=== PATIENT | female | born 1935 | race Caucasian/White ===

== ENCOUNTER 2016-07-11 10:21 | Inpatient (IN) ==
[2016-07-11] MEDS ORDERED: DILTIAZEM 50 MG/10 ML VIAL IV STA ×2 (10:55→11:23)
[2016-07-11] MEDS ORDERED: DILTIAZEM 50 MG/10 ML VIAL IV ONE (10:57)
[2016-07-11] MEDS ORDERED: DILTIAZEM INJ 100 MG in SODIUM CHLORIDE 0.9% 100 ML IV SCH ×2 (11:00→12:30)
[2016-07-11 11:05] LABS: Basophils % 0.2 % (0.0-0.8); Eosinophils # 0.1 10*3/uL (0.0-0.87); Eosinophils % 0.5 % (0.00-10.9); Hematocrit 36.1 VOL% (35.7-47.0); Hemoglobin 12.1 GM/DL (12.0-16.0); Immature Granulocytes % 0.5 %; Immature Granulocytes Absolute 0.07 #; Lymphocytes # 2.6 10*3/uL (1.4-4.0); Lymphocytes % 19.7 % (21.3-54.2); Mean Corpuscular HGB Conc 33.5 GM/DL (32-36); Mean Corpuscular Hemoglobin 28 PG (27-34); Mean Corpuscular Volume 84.5 FL (87-102); Mean Platelet Volume 10.1 FL (9.6-12.0); Monocytes # 1.2 10*3/uL (0.11-0.8); Monocytes % 8.9 % (1.7-12.7); Neutrophils # 9.1 10*3/uL (1.4-7.4); Neutrophils % 70.2 % (38.7-73.9); Platelet Count 174 T/CUMM (130-400); Red Blood Count 4.27 MC/CUMM (3.8-5.5)
[2016-07-11 11:40] LABS: Albumin 3.1 G/DL (3.4-5.0); Bilirubin,Total 1.8 MG/DL (0.2-1.0); Calcium 7.8 MG/DL (8.5-10.1); Osmolality,Calculated 283.5 MOS/KG (273-304); Potassium 4.1 MMOL/L (3.5-5.1); Thyroid Stimulating Hormone 1.58 uIU/ml (0.358-3.74); Total Protein 6.2 G/DL (6.4-8.3)
[2016-07-11 11:41] LABS: Troponin I Only 0.217 NG/ML (0.00-0.045)
[2016-07-11] MEDS ORDERED: MORPHINE 2 MG/1 ML SYRINGE IV PRN (12:07)
[2016-07-11] MEDS ORDERED: ONDANSETRON 4 MG/2 ML VIAL IV PRN (12:07)
[2016-07-11] MEDS ORDERED: ACETAMINOPHEN 325 MG TABLET PO PRN (12:07)
--- NOTE | 2016-07-11 12:07 | Emergency Department Note ---
Yasmany Ca Brooke, am scribing for, and in the presence of, Dariel Otero MD 10 :52. Branden Ca Doug C, MD, personally performed the services described in this documentation, ascribed by Traci Jade in my presence, and it is both accurate and complete . Arrival - Arrival Chief Complaint: Weakness Stated Complaint: in afib/brought from clinic ED Nursing Triage Note: PT COMPLAINS OF HER FEET HURTING AND SWOLLEN, STATES SHE WAS REAL FATIGUED YESTERDAY AND HR WAS ELEVATED Mode of Arrival: Wheelchair Limitations: No Limitations Source: Patient, RN Notes Reviewed Time Seen by Provider: 07/11/16 10:50 - History of Present Illness HPI Narrative: Patient's 81-year-old white female presents emergency room complaining of increasing weakness and shortness of breath. Patient states she is noted swelling of her lower extremities but she does not perceive her heart racing. Her states when I checked her blood pressure at home for the last several days her pulse rate has measured high. Patient denies any pain associated with this. Patient denies any neck, shoulder or arm discomfort and she is not having any nausea or vomiting. Patient does have a past medical history of chronic atrial fibrillation and is on low-dose diltiazem and carvedilol. Allergies/Adverse Reactions: Allergies Allergy/AdvReac Type Severity Reaction Status Date / Time diphenhydramine AdvReac RASH Verified 07/11/16 10:30 [From Benadryl] Penicillins AdvReac RASH Verified 07/11/16 10:30 Home Medications: Home Medications Medication Instructions Recorded Confirmed Type Aspirin EC Tab 81 mg PO QPM 07/11/16 07/11/16 History Carvedilol [Carvedilol] 12.5 mg PO QPM 07/11/16 07/11/16 History Multivitamin [Multivitamins] 1 each PO QAM 07/11/16 07/11/16 History Omeprazole [Omeprazole] 20 mg PO QAM 07/11/16 07/11/16 History Simvastatin [Simvastatin] 5 mg PO MOWEFR 07/11/16 07/11/16 History Warfarin [Coumadin] 0.625 mg PO SUMOWEFR 07/11/16 07/11/16 History Warfarin [Coumadin] 1.25 mg PO TUTHSA 07/11/16 07/11/16 History dilTIAZem HCl [Cartia XT] 120 mg PO QAM 07/11/16 07/11/16 History Review of System - Review of System 12 point system: reviewed and no additional remarkable complaints except as stated - Review of System Constitutional: Absent: fever Respiratory: Absent: respiratory distress Cardiovascular: Present: edema (bilateral lower extremities), other (elevated heart rate) Skin: Absent: rash Medical,Surgical,& Family Hx - Medical History Cardio: History of: Cardiac Dysrhythmia (a fib), Hypertension (not on meds) - Surgical History Surgical History: noncontributory - Family History Family History: noncontributory - Social History Smoking Status: Never smoker Exam Vital Signs: Vital Signs Temperature 97.6 F 07/11/16 10:30 Pulse Rate 160 H 07/11/16 10:30 Respiratory Rate 22 07/11/16 10:30 Blood Pressure 111/91 07/11/16 10:30 O2 Sat by Pulse Oximetry 99 07/11/16 10:30 - General General appearance: alert, in no apparent distress - Head Head exam: Present: atraumatic, normocephalic - Eye Eye exam: Present: normal appearance, PERRL, EOMI - ENT ENT exam: Present: normal exam - Neck Neck exam: Present: normal inspection - Chest Chest inspection: Present: normal inspection, symmetric chest wall rise - Respiratory Respiratory exam: Present: normal lung sounds bilaterally - Cardiovascular Cardiovascular exam: Present: tachycardia, irregular rhythm, normal heart sounds. Absent: normal rhythm - Abdominal Exam Abdominal exam: Present: soft. Absent: distention, tenderness - Extremities Exam Extremities exam: Present: normal inspection - Back Exam Back exam: Present: normal inspection - Neurological Exam Neurological exam: Present: alert, oriented X3, CN II-XII intact. Absent: motor sensory deficit - Psychiatric Psychiatric exam: Present: normal affect, normal mood - Skin Skin exam: Present: warm, dry, intact, normal color Course Course Narrative: Patient's clinical presentation, laboratory and radiograph findings were discussed with Dr. Alvaro Gilliam. He will admit the patient for his services and cardiology will be consulted. Dr. Barry was notified. Results - Labs CBC & BMP: 07/11/16 10:53 07/11/16 10:53 Lab Results: I have reviewed the patients labs Labs: Laboratory Tests 07/11/16 10:53 WBC 13.0 H MCV 84.5 L Lymph % (Auto) 19.7 L Neut # (Auto) 9.1 H [place] # (Auto) 1.2 H - EKG EKG results: interpreted by BEATRIZD EKG shows: atrial fibrillation (With rapid ventricular response) Disposition Clinical Impression: Atrial fibrillation with rapid ventricular response Case discussed with: patient, patient's family Disposition: Still a Patient Condition: Stable Time of Disposition: 12:07
--- NOTE | 2016-07-11 12:35 | XRay Report ---
History: Acute dyspnea Date: 07/11/2016 at 12:19 PM Study: Chest x-ray AP portable Comparison exam: October 01, 2012 chest x-ray There is cardiomegaly. There is no mediastinal mass. There is [id number]-[id number] aortic arch calcification. The pulmonary vasculature is borderline prominent. There is some mild hazy density in the lung bases bilaterally. There is no gross pleural effusion. The osseous structures are unchanged, with mild thoracic spondylosis. Impression: Mild hazy bibasilar parenchymal disease. Mild pulmonary edema related to CHF/volume overload is favored over pneumonia PROCEDURE INTERPRETED AT [facility] DEPARTMENT OF RADIOLOGY Final Report Signed by: Dr. Karina Vizcaino
--- NOTE | 2016-07-11 12:48 | EKG Report ---
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
[2016-07-11 13:45] LABS: PT Patient Result 33.9 SECS
--- NOTE | 2016-07-11 14:38 | Cardiology Consult Note ---
Assessment and Plan - Time spent with patient Time spent with patient: Greater than 30 minutes (1) Atrial fibrillation with rapid ventricular response Status: Acute Assessment and plan: See plan of care listed below. Current Visit: Yes (2) Renal insufficiency Status: Chronic Assessment and plan: See plan of care listed below. Current Visit: Yes (3) Chronic anticoagulation Status: Chronic Assessment and plan: See plan of care listed below. Current Visit: Yes (4) Dyslipidemia Status: Chronic Assessment and plan: See plan of care listed below. Current Visit: Yes (5) Elevated troponin Status: Acute Assessment and plan: See plan of care listed below. Current Visit: Yes (6) Hypomagnesemia Status: Acute Assessment and plan: See plan of care listed below. Current Visit: Yes (7) Elevated liver enzymes Status: Acute Assessment and plan: See plan of care listed below. Current Visit: Yes (8) Pulmonary edema Status: Acute Assessment and plan: See plan of care listed below. Current Visit: Yes History of Present Illness - Data of Consult Patient: known to practice within the last 3 years Consult date: 07/11/16 Requesting Physician: Dariel Otero Primary care physician: Dariel Otero - Consult Narrative Reason for consult: weakness History of present illness: Desizing Machine Operator: Dr. Kemp PCP: Dr. Dariel Otero Ms. Roth is a 81 year old female is routinely followed by Dr mcgraw. Patient presented to [facility] this morning with complaints of weakness. Patient is a poor historian. She is a questionable history of coronary artery disease. She reports that she has never undergone heart catheterization and does not have any coronary stents. However, Dr. Kemp note she has diagnosed with coronary artery disease. No heart catheterization reports were found in electronic medical record. She has cardiac risk factors significant for hypertension, dyslipidemia, former smoker ( quit in 1956), advanced age, sedentary lifestyle and family history of heart disease. She has a past medical history of chronic atrial fibrillation chronically anticoagulated with Coumadin. She was last seen in the cardiology clinic January 2016. At that time, she was offered to change her anticoagulation to a [place]. She declined. Patient presented to the emergency department earlier today with complaints of weakness, bilateral lower extremity edema and fatigue. Upon arrival to the emergency department she was noted to be in atrial fibrillation with rapid ventricular response, heart rate 150s-160s. Patient does have a history of chronic atrial fibrillation and is chronically anticoagulated with Coumadin. INR 3.0. Patient denies shortness of breath and chest pain, heaviness and tightness. Denies orthopnea, PND and heart racing/palpitations. In the emergency department she was started on diltiazem drip. This continues to infuse at 7 mg/h. Patient remains in atrial fibrillation. Heart rates are better controlled ranging from 100-110. Patient was admitted under Dr. Otero service and housed on the telemetry unit. Cardiology has been consulted to assist with heart atrial fibrillation. Troponin is mildly elevated at 0.2. I suspect that this is most likely secondary to patient's rapid ventricular response and renal insufficiency, creatinine 1.6. Patient has been without anginal symptoms. Chest x-ray reveals mild pulmonary edema. Patient denies shortness of breath. Echocardiogram has been ordered. Will check BNP in the morning. Magnesium is low at 1.4. Magnesium replacement protocol ordered. Vital signs are stable. Will discuss this further with Dr. Barry and await his recommendations. Assessment/plan: 1. ATRIAL FIBRILLATION WITH RAPID VENTRICULAR RESPONSE - Patient has history of chronic atrial fibrillation. Chronically anticoagulated with Coumadin. Continue Coumadin this hospitalization. Daily INR. Currently receiving Cardizem infusion at 7.5 mg an hour. I will increase this to 10 mg/h. Once she is rate controlled, we will then transition her back to p.o. Cardizem. Continue beta-blockade. Patient will most likely not be a good candidate for amiodarone as she has elevated liver enzymes. 2. ELEVATED TROPONIN - Troponin is mildly elevated at 0.2. I suspect this is most likely secondary to patient's rapid ventricular response and renal insufficiency as patient's creatinine was 1.6. Patient is without anginal symptoms. We will continue to monitor this trend to ensure that this is in fact trending down. 3. HYPERTENSION - Blood pressure is well controlled. Will continue current plan of care and further adjust as needed throughout her hospital stay. 4. HYPERLIPIDEMIA - Continue current plan of care with lipid lowering agent. Lipid panel ordered. 5. CHRONIC ANTICOAGULATION - Patient is chronically anticoagulated with Coumadin as she has chronic A. fib. INR on admission is 3.0. Will recheck this in the morning and adjust Coumadin as needed throughout her hospital stay. 6. RENAL INSUFFICIENCY - Will monitor this closely with daily BMP. 7. HYPOMAGNESEMIA- Magnesium 1.4. Magnesium replacement protocol ordered. Daily magnesium. 8. BILATERAL LOWER EXTREMITY EDEMA - Will check BNP in the morning. Echocardiogram has been ordered. Will review results and make further recommendations at that time. 9 ELEVATED LIVER ENZYMES - Patient's liver enzymes as well as total bilirubin is elevated. Will monitor this closely. Defer management further workup of this to attending. CC: Dariel Otero MD - Home Medications and Allergies Home Medications: Home Medications Medication Instructions Recorded Confirmed Type Aspirin EC Tab 81 mg PO QPM 07/11/16 07/11/16 History Carvedilol [Carvedilol] 12.5 mg PO QPM 07/11/16 07/11/16 History Multivitamin [Multivitamins] 1 each PO QAM 07/11/16 07/11/16 History Omeprazole [Omeprazole] 20 mg PO QAM 07/11/16 07/11/16 History Simvastatin [Simvastatin] 5 mg PO MOWEFR 07/11/16 07/11/16 History Warfarin [Coumadin] 0.625 mg PO SUMOWEFR 07/11/16 07/11/16 History Warfarin [Coumadin] 1.25 mg PO TUTHSA 07/11/16 07/11/16 History dilTIAZem HCl [Cartia XT] 120 mg PO QAM 07/11/16 07/11/16 History Allergies/Adverse Reactions: Allergies Allergy/AdvReac Type Severity Reaction Status Date / Time diphenhydramine AdvReac RASH Verified 07/11/16 10:30 [From Benadryl] Penicillins AdvReac RASH Verified 07/11/16 10:30 - Constitutional Constitutional: Present: fatigue, lethargy, malaise, weakness. Absent: chills, fever(s) - EENT Nose, mouth and throat: Present: other (Hard of hearing) - Cardiovascular Cardiovascular: Present: edema. Absent: chest pain at rest, chest pain with activity, dyspnea, dyspnea on exertion, radiating jaw, neck or arm pain, orthopnea, palpitations, PND - Respiratory Respiratory: Absent: cough, dyspnea, hemoptysis, dyspnea on exertion, wheezing - Gastrointestinal Gastrointestinal: Absent: abdominal pain, change in bowel habits, coffee ground emesis, constipation, cramping, diarrhea, hematemesis, hematochezia, loose stools, melena, nausea, vomiting - Neurological Neurological: Absent: abnormal gait, abnormal speech, behavioral changes, dizziness, syncope Medical,Surgical,& Family Hx - Medical History Cardio: History of: Cardiac Dysrhythmia (a fib), Hypertension (not on meds) Endocrine: History of: Dyslipidemia - Family History Family History: Reports;: Family Heart Disease - Social History Smoking Status: Former smoker Frequency of Alcohol Use: None Type of Drug Use: None Physical Examination Vital Signs Temp Pulse Resp BP Pulse Ox 97.6 F 160 H 22 111/91 99 07/11/16 10:30 07/11/16 10:30 07/11/16 10:30 07/11/16 10:30 07/11/16 10:30 Other: General: Appears well with no apparent distress. Pleasant and cooperative. Appears comfortable. HEENT: PERRL, normocephalic, atraumatic. Mucous membranes moist. No jaundice noted. Conjunctiva moist and clear, sclerae anicteric Neck: No JVD/HJR, no thyromegaly or lymphadenopathy noted. No carotid bruit appreciated Cardiac: Irregular rhythm, tachycardia. Systolic murmur. Lungs: Clear to auscultation without accessory muscle use to assist the respiratory pattern. Not requiring oxygen. Abdomen: Soft, bowel sounds normoactive. Nontender and nondistended. No abdominal bruit or thrill noted. No masses noted. Extremities: No clubbing, cyanosis noted. 1+ bilateral lower extremity edema. Upper extremity pulses 2+. Lower extremity pulses 2+. Capillary refill less than 3 seconds. Skin: No unusual lesions or rashes. No skin breakdown appreciated. Neuro: Awake, alert and oriented 3. Moves all extremities well without hemiparesis or paralysis. No essential tremor is appreciated. Result/EKG - Labs CBC & BMP: 07/11/16 10:53 07/11/16 10:53 Lab Results: I have reviewed the past 24 hour labs Labs: Laboratory Results - last 24 hr 07/11/16 13:23 INR 3.0 PT Patient/Control Mix 33.9 - EKG EKG results: interpreted by me EKG shows: atrial fibrillation Quality Measures - Stroke Symptom Onset Unknown: No
[2016-07-11] MEDS: MAGNESIUM SULF RIDER 2 GM in PREMIX 1 EACH IV PRN ×2 (15:35→17:03)
[2016-07-11] MEDS: SIMVASTATIN 10 MG TABLET PO SCH (15:41)
[2016-07-11 16:36] LABS: Troponin I Only 0.159 NG/ML (0.00-0.045)
[2016-07-11] MEDS: WARFARIN 2.5 MG TABLET PO SCH (18:05)
[2016-07-11] MEDS: ASPIRIN EC 81 MG TABLET PO SCH (18:05)
[2016-07-11] MEDS ORDERED: CARVEDILOL 12.5 MG TABLET PO SCH ×2 (19:00→21:00)
[2016-07-11] MEDS ORDERED: CARVEDILOL 25 MG TABLET PO SCH (19:00)
--- NOTE | 2016-07-11 20:09 | Family Practice History&Phys ---
Assessment and Plan (1) Atrial fibrillation with rapid ventricular response Status: Acute Assessment and plan: 07/11/2016 patient is on Cardizem at this time. We will continue her current medicines as ordered per ER Current Visit: Yes (2) Elevated troponin Status: Acute Assessment and plan: 07/11/2016: This is elevated probably due to the fast heart rate. Patient does not have any crystal chest pain at this time Current Visit: Yes (3) Dyslipidemia Status: Chronic Assessment and plan: 07/11/2016: Continue current medications for this. Current Visit: Yes History of Present Illness Chief complaint: Weakness, irregular heartbeat History of present illness: Ms. Roth is a 81 year old female , Primary patient of Dr. Otero came into the emergency room with some weakness. She was noted on examination to be in atrial fibrillation with a rapid ventricular response. She does have cardiac history treated medically. She does have a history of hypertension, dyslipidemia and there is a family history of heart disease. She has had a chronic history of atrial fibrillation and has been on Coumadin but at this time it was noted to have a fast ventricular response. Her heart rate was in the range of 150-155. Patient was started on diltiazem drip in the emergency room and is continuing at this time. We will monitor closely and check a thyroid if not already done. Cardiology is already seen patient and appreciate their assistance in this case Home Medications Medication Instructions Recorded Confirmed Type Aspirin EC Tab 81 mg PO QPM 07/11/16 07/11/16 History Carvedilol [Carvedilol] 12.5 mg PO QPM 07/11/16 07/11/16 History Multivitamin [Multivitamins] 1 each PO QA 07/11/16 07/11/16 History Omeprazole [Omeprazole] 20 mg PO QAM 07/11/16 07/11/16 History Simvastatin [Simvastatin] 5 mg PO MOWEFR 07/11/16 07/11/16 History Warfarin [Coumadin] 0.625 mg PO SUMOWEFR 07/11/16 07/11/16 History Warfarin [Coumadin] 1.25 mg PO TUTHSA 07/11/16 07/11/16 History dilTIAZem HCl [Cartia XT] 120 mg PO QAM 07/11/16 07/11/16 History Allergies Allergy/AdvReac Type Severity Reaction Status Date / Time diphenhydramine AdvReac RASH Verified 07/11/16 10:30 [From Benadryl] Penicillins AdvReac RASH Verified 07/11/16 10:30 12 point system: reviewed and no additional remarkable complaints except as stated (Except that mentioned on H&P and physical exam) - EENT Ears: Absent: ear pain Nose, mouth and throat: Absent: dysphagia - Respiratory Respiratory: Absent: hemoptysis - Gastrointestinal Gastrointestinal: Absent: hematemesis - Genitourinary Genitourinary: Absent: difficulty urinating Medical,Surgical,& Family Hx - Medical History Cardio: History of: Cardiac Dysrhythmia (a fib), Hypertension (not on meds) Endocrine: History of: Dyslipidemia - Family History Family History: Reports;: Family Heart Disease - Social History Smoking Status: Former smoker Frequency of Alcohol Use: None Type of Drug Use: None Exam - Constitutional Vitals: Period Temp Pulse Resp BP Sys/Cook Pulse Ox Last 24 Hr 97.1 F 121-130 20 100/58 95 Exam: Generally well-developed. No acute distress appears her approximate age of 81 years. HEENT neck is supple trachea midline Cardiovascular rate is irregular and atrial fibrillation with rapid ventricular response intermittently. There is 1/6 systolic ejection murmur Lungs few basilar rales but no respiratory distress Abdomen soft nondistended Extremities no clubbing cyanosis Results - Labs CBC & BMP: 07/11/16 10:53 07/11/16 10:53 Quality Measures - Stroke Symptom Onset Unknown: No
[2016-07-11] MEDS: METOPROLOL TARTRATE 25 MG TABLET PO SCH (22:40)
[2016-07-11] MEDS: DOCUSATE SODIUM 100 MG CAPSULE PO SCH (22:40)
[2016-07-11 23:59] LABS: Troponin I Only 0.108 NG/ML (0.00-0.045)
[2016-07-12 04:54] LABS: Basophils % 0.1 % (0.0-0.8); Eosinophils # 0.2 10*3/uL (0.0-0.87); Eosinophils % 2.3 % (0.00-10.9); Hematocrit 33.8 VOL% (35.7-47.0); Hemoglobin 11.1 GM/DL (12.0-16.0); Immature Granulocytes % 0.3 %; Immature Granulocytes Absolute 0.03 #; Lymphocytes # 2.4 10*3/uL (1.4-4.0); Lymphocytes % 23.6 % (21.3-54.2); Mean Corpuscular HGB Conc 32.8 GM/DL (32-36); Mean Corpuscular Hemoglobin 28 PG (27-34); Mean Corpuscular Volume 84.7 FL (87-102); Mean Platelet Volume 10.2 FL (9.6-12.0); Monocytes # 0.8 10*3/uL (0.11-0.8); Monocytes % 8.2 % (1.7-12.7); Neutrophils # 6.6 10*3/uL (1.4-7.4); Neutrophils % 65.5 % (38.7-73.9); Platelet Count 195 T/CUMM (130-400); Red Blood Count 3.99 MC/CUMM (3.8-5.5); Red Cell Distribution Width 14.8 % (9.3-17.3); White Blood Count 10.1 T/CUMM (4-12)
[2016-07-12 05:12] LABS: INR 3.2
[2016-07-12 05:40] LABS: Albumin 2.7 G/DL (3.4-5.0); Bilirubin,Direct 0.5 MG/DL (0.0-0.20); Bilirubin,Indirect 1.5 MG/DL (0.0-1.0); Calcium 7.9 MG/DL (8.5-10.1); Magnesium 2.5 MG/DL (1.8-2.4); Osmolality,Calculated 281.4 MOS/KG (273-304); Potassium 3.8 MMOL/L (3.5-5.1); Total Protein 5.4 G/DL (6.4-8.3)
[2016-07-12] MEDS ORDERED: FUROSEMIDE 20 MG TABLET PO ONE (07:56)
[2016-07-12] MEDS ORDERED: POTASSIUM CHLORIDE 20 MEQ TABLET PO ONE (07:57)
[2016-07-12] MEDS: MULTIVITAMIN (CENTRUM) TABLET PO SCH (08:03)
[2016-07-12] MEDS: DOCUSATE SODIUM 100 MG CAPSULE PO SCH ×2 (08:03→20:46)
[2016-07-12] MEDS: PANTOPRAZOLE 40 MG TABLET PO SCH (08:03)
[2016-07-12] MEDS: DILTIAZEM CD 120 MG CAPSULE PO SCH (08:03)
[2016-07-12] MEDS: METOPROLOL TARTRATE 25 MG TABLET PO SCH (08:04)
--- NOTE | 2016-07-12 09:01 | EKG Report ---
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
[2016-07-12 09:07] LABS: Troponin I Only 0.084 NG/ML (0.00-0.045)
--- NOTE | 2016-07-12 09:14 | Family Practice Progress Note ---
Family Practice - PN: Subj Interval history: Patient seen this morning. Her heart rate is still fast between 110 and 130. Remains in atrial fibrillation with intermittent RVR. She is satting approximately 94%. Continues on a Cardizem drip and is tolerating p.o. Cardizem as well. Her H&H is stable and her chemistries reveal creatinine 1.3 which is down from 1.6. Her magnesium has come up to within normal levels and her cardiac ossicles are stable as well. She does have dependent 2+ edema and I am going to give her 1 dose of Lasix with potassium supplementation along with this. Exam (Progress Note) - Constitutional Vitals: Period Temp Pulse Resp BP Sys/Cook Pulse Ox Last 24 Hr 97 F-97.7 F 74-130 16-20 92-126/56-78 87-95 Exam: Generally well-developed. No acute distress appears her approximate age of 81 years. HEENT neck is supple trachea midline Cardiovascular rate is irregular and atrial fibrillation with rapid ventricular response intermittently. There is 1/6 systolic ejection murmur Lungs few basilar rales but no respiratory distress Abdomen soft nondistended Extremities no clubbing cyanosis Results - Labs CBC & BMP: 07/12/16 04:43 07/12/16 04:42 Assessment and Plan (1) Atrial fibrillation with rapid ventricular response Status: Acute Assessment and plan: 07/11/2016 patient is on Cardizem at this time. We will continue her current medicines as ordered per ER 07/12/2016 we are continuing on the cardiogram IV as well as p.o. now and cardiology is involved Current Visit: Yes (2) Elevated troponin Status: Acute Assessment and plan: 07/11/2016: This is elevated probably due to the fast heart rate. Patient does not have any crystal chest pain at this time Current Visit: Yes (3) Dyslipidemia Status: Chronic Assessment and plan: 07/11/2016: Continue current medications for this. Current Visit: Yes Quality Measures - Stroke Symptom Onset Unknown: No
--- NOTE | 2016-07-12 10:33 | ECHO Report ---
Zayra Roth Exam Date: 07/12/2016 08:36 Referring Physician: Technologist: Age: 81 Ht (in): Wt (lb): Gender: F Exam Location: [facility] Echo Indications: BP: / HR: Rhythm: Sinus Technical Quality: Fair IMPRESSIONS Left ventricular chamber sizes are at the upper limit of normal. No evidence of concentric LVH is noted. There is diffuse severe left ventricular hypokinesis with ejection fraction in the 15% range. There is paradoxic septal motion consistent with right ventricular volume/pressure overload. Right ventricle appears to be normal size. Right ventricular systolic function appears to be preserved. There is paradoxical septal motion as outlined above consistent with RV volume/pressure overload Normal right atrial size Marked left atrial enlargement Mitral annular calcification with otherwise normal mitral valve motion noted given the patient's atrial fibrillation. 1+ mitral insufficiency is noted. Aortic valve sclerosis without evidence of stenosis Tricuspid morphology is normal with normal motion. There is 4+ tricuspid insufficiency at velocities suggesting systolic PA pressures of 40 mmHg. Pulmonic valve is not well visualized No pericardial effusion. There is no calcification of the pericardium or pericardial thickening noted. Aortic root appears to be normal dimension without evidence of dissection or any MEASUREMENTS (Male / Female) Normal Values 2D ECHO LV Diastolic Diameter PLAX 5.1 cm 4.2 - 5.9 / 3.9 - 5.3 cm LV Systolic Diameter PLAX 4.8 cm LV Fractional Shortening PLAX 5.9 % IVS Diastolic Thickness 0.9 cm 0.6 - 1.0 / 0.6 - 0.9 cm LVPW Diastolic Thickness 1.0 cm 0.6 - 1.0 / 0.6 - 0.9 cm RV Internal Dim ED PLAX 2.9 cm Aortic Root Diameter 2.7 cm LA Systolic Diameter LX 4.6 cm 3.0 - 4.0 / 2.7 - 3.8 cm DOPPLER TR Peak Velocity 334.0 cm/s TR Peak Gradient 44.6 mmHg FINDINGS Left Ventricle Left ventricular chamber sizes are at the upper limit of normal. No evidence of concentric LVH is noted. There is diffuse severe left ventricular hypokinesis with ejection fraction in the 15% range. There is paradoxic septal motion consistent with right ventricular volume/pressure overload. Right Ventricle Right ventricle appears to be normal size. Right ventricular systolic function appears to be preserved. There is paradoxical septal motion as outlined above consistent with RV volume/pressure overload Right Atrium Normal right atrial size Left Atrium Marked left atrial enlargement Mitral Valve Mitral annular calcification with otherwise normal mitral valve motion noted given the patient's atrial fibrillation. 1+ mitral insufficiency is noted. Aortic Valve Aortic valve sclerosis without evidence of stenosis Tricuspid Valve Tricuspid morphology is normal with normal motion. There is 4+ tricuspid insufficiency at velocities suggesting systolic PA pressures of 40 mmHg. Pulmonic Valve Pulmonic valve is not well visualized Pericardium No pericardial effusion. There is no calcification of the pericardium or pericardial thickening noted. Aorta Aortic root appears to be normal dimension without evidence of dissection or any Fransisco Barry MD (Electronically Signed) Final Date: 12 Jul 2016 10:32
--- NOTE | 2016-07-12 11:12 | Cardiology Progress Note ---
Assessment and Plan (1) Cardiomyopathy Status: Acute Assessment and plan: This patient has a new finding of an ejection fraction of 15%. She does have evidence of right ventricular pressure and volume overload. She will be volume dependent will have to be cautious about over diuresing. I think the best approach is going to be rate control and offloading as she tolerates. She is in atrial fibrillation with rapid ventricular response on Cardizem which is not optimal and we will try to transition her medicine once we have her rate better controlled. Current Visit: Yes (2) Atrial fibrillation with rapid ventricular response Status: Acute Current Visit: Yes Cardiology - PN: Subj Interval history: This patient has a cardiomyopathy with an ejection fraction of 15%. She is in atrial fibrillation with rapid ventricular response. Cardizem was not an optimal medicine given the situation and we will continue it until we have her rate under little better control while we adjust her meds. I am going to increase her beta-david and and angiotensin receptor david and follow her renal function closely. Exam (Progress Note) - Constitutional Vitals: Period Temp Pulse Resp BP Sys/Cook Pulse Ox Last 24 Hr 97 F-97.7 F 74-130 16-20 92-126/56-78 87-95 Exam: General:no acute distress. alert and oriented, mood and affect are normal HEENT: no new lesions, sclerae are clear, mouth and pharynx benign Neck: supple, trachea midline, no JVD noted Lungs: no rales ronchi or wheeze is noted. pt comfortable without accesory muscle use to assist with breathing CV: Irregularly irregular rate and rhythm no murmur rub or gallop is noted. Abd: soft and nontender, BSNA, no masses. Ext: no cyanosis, clubbing or edema Neuro: grossly intact without focal neurologic deficit. Result/EKG - Labs CBC & BMP: 07/12/16 04:43 07/12/16 04:42 Labs: Laboratory Results - last 24 hr 07/11/16 07/11/16 07/11/16 13:23 15:47 23:09 WBC RBC Hgb Hct MCV MCH MCHC RDW Plt Count MPV Neut % (Auto) Lymph % (Auto) [place] % (Auto) Eos % (Auto) Baso % (Auto) Neut # (Auto) Lymph # (Auto) [place] # (Auto) Eos # (Auto) Baso # (Auto) Immature Gran % Nucleated RBC % Immature Gran # Nucleated RBCs # INR 3.0 PT Patient/Control Mix 33.9 Sodium Potassium Chloride Carbon Dioxide Anion Gap BUN Creatinine GFR Calculation BUN/Creatinine Ratio Glucose Calculated Osmolality Calcium Magnesium Total Bilirubin Direct Bilirubin Indirect Bilirubin AST ALT Alkaline Phosphatase Total Creatine Kinase 61 60 CK-MB (CK-2) 1.7 1.5 Troponin I 0.159 H D 0.108 H D B-Natriuretic Peptide Total Protein Albumin 07/12/16 07/12/16 07/12/16 04:42 04:42 04:42 WBC RBC Hgb Hct MCV MCH MCHC RDW Plt Count MPV Neut % (Auto) Lymph % (Auto) [place] % (Auto) Eos % (Auto) Baso % (Auto) Neut # (Auto) Lymph # (Auto) [place] # (Auto) Eos # (Auto) Baso # (Auto) Immature Gran % Nucleated RBC % Immature Gran # Nucleated RBCs # INR 3.2 PT Patient/Control Mix 36.0 Sodium 140 Potassium 3.8 Chloride 106 Carbon Dioxide 24 Anion Gap 13.8 BUN 22 H Creatinine 1.30 H GFR Calculation 38 BUN/Creatinine Ratio 16.00 Glucose 106 Calculated Osmolality 281.4 Calcium 7.9 L Magnesium 2.5 H Total Bilirubin Direct Bilirubin Indirect Bilirubin AST ALT Alkaline Phosphatase Total Creatine Kinase CK-MB (CK-2) Troponin I B-Natriuretic Peptide 670 H Total Protein Albumin 07/12/16 07/12/16 07/12/16 04:42 04:43 07:42 WBC 10.1 RBC 3.99 Hgb 11.1 L Hct 33.8 L MCV 84.7 L MCH 28 MCHC 32.8 RDW 14.8 Plt Count 195 MPV 10.2 Neut % (Auto) 65.5 Lymph % (Auto) 23.6 Cameron % (Auto) 8.2 Eos % (Auto) 2.3 Baso % (Auto) 0.1 Neut # (Auto) 6.6 Lymph # (Auto) 2.4 [place] # (Auto) 0.8 Eos # (Auto) 0.2 Baso # (Auto) 0.0 Immature Gran % 0.3 Nucleated RBC % 0.0 Immature Gran # 0.03 Nucleated RBCs # 0.00 INR PT Patient/Control Mix Sodium Potassium Chloride Carbon Dioxide Anion Gap BUN Creatinine GFR Calculation BUN/Creatinine Ratio Glucose Calculated Osmolality Calcium Magnesium Total Bilirubin 2.00 H Direct Bilirubin 0.50 H Indirect Bilirubin 1.5 H AST 141 H ALT 152 H Alkaline Phosphatase 72 Total Creatine Kinase 57 CK-MB (CK-2) 2.5 Troponin I 0.084 H D B-Natriuretic Peptide Total Protein 5.4 L Albumin 2.7 L Quality Measures - Stroke Symptom Onset Unknown: No
[2016-07-12] MEDS ORDERED: WARFARIN 2.5 MG TABLET PO SCH (18:00)
[2016-07-12] MEDS: ASPIRIN EC 81 MG TABLET PO SCH (18:10)
[2016-07-13 05:12] LABS: Basophils % 0.3 % (0.0-0.8); Eosinophils # 0.4 10*3/uL (0.0-0.87); Eosinophils % 3.8 % (0.00-10.9); Hematocrit 35.2 VOL% (35.7-47.0); Hemoglobin 11.7 GM/DL (12.0-16.0); Immature Granulocytes % 0.4 %; Immature Granulocytes Absolute 0.04 #; Lymphocytes # 2.6 10*3/uL (1.4-4.0); Lymphocytes % 26.1 % (21.3-54.2); Mean Corpuscular HGB Conc 33.2 GM/DL (32-36); Mean Corpuscular Hemoglobin 28 PG (27-34); Mean Corpuscular Volume 83.8 FL (87-102); Mean Platelet Volume 10.1 FL (9.6-12.0); Monocytes # 0.8 10*3/uL (0.11-0.8); Monocytes % 8.3 % (1.7-12.7); Neutrophils % 61.1 % (38.7-73.9); Platelet Count 234 T/CUMM (130-400); Red Cell Distribution Width 14.9 % (9.3-17.3); White Blood Count 9.8 T/CUMM (4-12)
[2016-07-13 05:30] LABS: INR 4.1
[2016-07-13 05:34] LABS: PT Patient Result 47.6 SECS
[2016-07-13 05:46] LABS: Calcium 8.1 MG/DL (8.5-10.1); Magnesium 2.2 MG/DL (1.8-2.4); Osmolality,Calculated 285.3 MOS/KG (273-304); Potassium 4.6 MMOL/L (3.5-5.1)
[2016-07-13] MEDS: LOSARTAN 25 MG TABLET PO SCH (08:19)
[2016-07-13] MEDS: MULTIVITAMIN (CENTRUM) TABLET PO SCH (08:19)
[2016-07-13] MEDS: DOCUSATE SODIUM 100 MG CAPSULE PO SCH ×2 (08:19→20:59)
[2016-07-13] MEDS: DILTIAZEM CD 120 MG CAPSULE PO SCH (08:19)
[2016-07-13] MEDS: BISOPROLOL 5 MG TABLET PO SCH (08:19)
[2016-07-13] MEDS: PANTOPRAZOLE 40 MG TABLET PO SCH (08:19)
--- NOTE | 2016-07-13 08:35 | EKG Report ---
Stationary ECG Study 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
[2016-07-13] MEDS: DOBUTamine 500 MG/250 ML PREMIX IV SCH (09:47)
[2016-07-13] MEDS ORDERED: PHENOL 1.4% THROAT SPRAY 177 ML BOTTLE PO PRN (09:59)
--- NOTE | 2016-07-13 10:02 | Family Practice Progress Note ---
Family Practice - PN: Subj Interval history: Patient seen this morning. She is up and eating breakfast in fairly good spirits. It is noted she has got a very poor ejection fraction. Continues to be in atrial fibrillation with a fast ventricular response and cardiology is on board trying to manage this. She is alert and oriented. Nose no nausea vomiting or diarrhea. Exam (Progress Note) - Constitutional Vitals: Period Temp Pulse Resp BP Sys/Cook Pulse Ox Last 24 Hr 96.5 F-98.3 F 108-139 18-22 100-125/44-86 91-95 Exam: Generally well-developed. No acute distress appears her approximate age of 81 years. HEENT neck is supple trachea midline Cardiovascular rate is irregular and atrial fibrillation with rapid ventricular response intermittently. There is 1/6 systolic ejection murmur Lungs few basilar rales but no respiratory distress Abdomen soft nondistended Extremities no clubbing cyanosis Results - Labs CBC & BMP: 07/13/16 04:37 07/13/16 04:37 Assessment and Plan (1) Atrial fibrillation with rapid ventricular response Status: Acute Assessment and plan: 07/11/2016 patient is on Cardizem at this time. We will continue her current medicines as ordered per ER 07/12/2016 we are continuing on the cardiogram IV as well as p.o. now and cardiology is involved 07/13/2016 continues to be in atrial fibrillation with fast response Current Visit: Yes (2) Elevated troponin Status: Acute Assessment and plan: 07/11/2016: This is elevated probably due to the fast heart rate. Patient does not have any crystal chest pain at this time Current Visit: Yes (3) Dyslipidemia Status: Chronic Assessment and plan: 07/11/2016: Continue current medications for this. Current Visit: Yes (4) Sore throat in the morning Status: Acute Assessment and plan: 07/13/2016 Chloraseptic [place] Current Visit: Yes Quality Measures - Stroke Symptom Onset Unknown: No
[2016-07-13] MEDS ORDERED: FUROSEMIDE 40 MG/4 ML VIAL IV ONE (10:19)
--- NOTE | 2016-07-13 11:24 | Cardiology Progress Note ---
Assessment and Plan (1) Cardiomyopathy Status: Acute Assessment and plan: This patient has a new finding of an ejection fraction of 15%. She does have evidence of right ventricular pressure and volume overload. She will be volume dependent will have to be cautious about over diuresing. I think the best approach is going to be rate control and offloading as she tolerates. She is in atrial fibrillation with rapid ventricular response on Cardizem which is not optimal and we will try to transition her medicine once we have her rate better controlled. 07/13: Patient's heart rate is not responding to Cardizem. It is not an optimal drug for the degree of LV dysfunction that she has I will have her start dobutamine and see if we can improve her cardiac performance and hopefully we will see that her heart rate comes down based on that. The other consideration would be that she is a little volume depleted although by chest x-ray and by BNP she was in mild heart failure.. She certainly is not hypotensive. Current Visit: Yes (2) Atrial fibrillation with rapid ventricular response Status: Acute Assessment and plan: 07/13: Patient continues with tachycardia palpitations and A. fib RVR unresponsive to increasing Cardizem. Will push beta blockade and try low-dose dobutamine to see if it will improve cardiac performance. Current Visit: Yes Exam (Progress Note) - Constitutional Vitals: Period Temp Pulse Resp BP Sys/Cook Pulse Ox Last 24 Hr 96.5 F-98.3 F 108-139 18-22 100-145/44-92 91-95 Result/EKG - Labs CBC & BMP: 07/13/16 04:37 07/13/16 04:37 Labs: Laboratory Results - last 24 hr 07/13/16 07/13/16 07/13/16 04:37 04:37 04:37 WBC 9.8 RBC 4.20 Hgb 11.7 L Hct 35.2 L MCV 83.8 L MCH 28 MCHC 33.2 RDW 14.9 Plt Count 234 MPV 10.1 Neut % (Auto) 61.1 Lymph % (Auto) 26.1 [place] % (Auto) 8.3 Eos % (Auto) 3.8 Baso % (Auto) 0.3 Neut # (Auto) 6.0 Lymph # (Auto) 2.6 [place] # (Auto) 0.8 Eos # (Auto) 0.4 Baso # (Auto) 0.0 Immature Gran % 0.4 Nucleated RBC % 0.0 Immature Gran # 0.04 Nucleated RBCs # 0.00 INR 4.1 PT Patient/Control Mix 47.6 D Sodium 141 Potassium 4.6 Chloride 108 H Carbon Dioxide 25 Anion Gap 12.6 BUN 24 H Creatinine 1.30 H GFR Calculation 39 BUN/Creatinine Ratio 18.00 Glucose 111 H Calculated Osmolality 285.3 Calcium 8.1 L Magnesium 2.2 Quality Measures - Stroke Symptom Onset Unknown: No
[2016-07-13] MEDS: ASPIRIN EC 81 MG TABLET PO SCH (17:59)
[2016-07-14 05:47] LABS: Basophils % 0.1 % (0.0-0.8); Eosinophils # 0.2 10*3/uL (0.0-0.87); Eosinophils % 2.3 % (0.00-10.9); Hematocrit 34.3 VOL% (35.7-47.0); Hemoglobin 11.2 GM/DL (12.0-16.0); Immature Granulocytes % 0.3 %; Immature Granulocytes Absolute 0.03 #; Lymphocytes # 2.4 10*3/uL (1.4-4.0); Lymphocytes % 28.2 % (21.3-54.2); Mean Corpuscular HGB Conc 32.7 GM/DL (32-36); Mean Corpuscular Hemoglobin 28 PG (27-34); Mean Corpuscular Volume 84.5 FL (87-102); Mean Platelet Volume 9.7 FL (9.6-12.0); Monocytes # 0.7 10*3/uL (0.11-0.8); Monocytes % 8.6 % (1.7-12.7); Neutrophils # 5.2 10*3/uL (1.4-7.4); Neutrophils % 60.5 % (38.7-73.9); Platelet Count 247 T/CUMM (130-400); Red Blood Count 4.06 MC/CUMM (3.8-5.5); Red Cell Distribution Width 15.1 % (9.3-17.3); White Blood Count 8.6 T/CUMM (4-12)
[2016-07-14 06:04] LABS: INR 3.9
[2016-07-14 06:08] LABS: PT Patient Result 45.1 SECS
[2016-07-14 06:13] LABS: Calcium 8.4 MG/DL (8.5-10.1); Magnesium 1.6 MG/DL (1.8-2.4); Osmolality,Calculated 293.4 MOS/KG (273-304)
--- NOTE | 2016-07-14 07:10 | EKG Report ---
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
--- NOTE | 2016-07-14 07:43 | Family Practice Progress Note ---
Family Practice - PN: Subj Interval history: Patient states she is breathing a little bit better this morning certainly having no chest pain. She still in atrial fibrillation but her heart rate is controlled. She is presently receiving IV Dobutrex. Exam (Progress Note) - Constitutional Vitals: Period Temp Pulse Resp BP Sys/Cook Pulse Ox Last 24 Hr 97 F-98.1 F 79-147 18-22 100-145/44-92 90-97 Exam: Objective a well-developed white female no acute distress. She is awake alert and able give good history. She has no dyspnea at rest. Cardiovascular: Heart rates are regular with no gallops. She has a soft systolic ejection murmur right base. Respiratory: Lungs clear to auscultation bilaterally. Abdomen: Abdomen soft tender to palpation. Results - Labs CBC & BMP: 07/14/16 04:16 07/14/16 04:16 Lab Results: I have reviewed the past 24 hour labs Assessment and Plan (1) Atrial fibrillation with rapid ventricular response Status: Acute Assessment and plan: 07/14/2016: Dobutrex has been added and her heart rate is improved. Current Visit: Yes Quality Measures - Stroke Symptom Onset Unknown: No
[2016-07-14] MEDS: FUROSEMIDE 40 MG/4 ML VIAL IV SCH (09:11)
[2016-07-14] MEDS: DILTIAZEM CD 120 MG CAPSULE PO SCH (09:11)
[2016-07-14] MEDS: LOSARTAN 25 MG TABLET PO SCH (09:11)
[2016-07-14] MEDS: MULTIVITAMIN (CENTRUM) TABLET PO SCH (09:11)
[2016-07-14] MEDS: PANTOPRAZOLE 40 MG TABLET PO SCH (09:11)
[2016-07-14] MEDS: DOCUSATE SODIUM 100 MG CAPSULE PO SCH ×2 (09:11→21:09)
[2016-07-14] MEDS: DOBUTamine 500 MG/250 ML PREMIX IV SCH (09:13)
[2016-07-14] MEDS: BISOPROLOL 5 MG TABLET PO SCH (09:15)
[2016-07-14] MEDS: SIMVASTATIN 10 MG TABLET PO SCH ×2 (11:30→17:54)
[2016-07-14] MEDS ORDERED: METOPROLOL TARTRATE 5 MG/5 ML VIAL IV ONE ×2 (12:47→13:45)
[2016-07-14 13:06] LABS: Albumin 2.6 G/DL (3.4-5.0); Bilirubin,Direct 0.3 MG/DL (0.0-0.20); Bilirubin,Indirect 0.3 MG/DL (0.0-1.0); Bilirubin,Total 0.6 MG/DL (0.2-1.0); Total Protein 5.4 G/DL (6.4-8.3)
--- NOTE | 2016-07-14 14:42 | Cardiology Progress Note ---
Assessment and Plan (1) Atrial fibrillation with rapid ventricular response Status: Acute Assessment and plan: See plan of care listed below. Current Visit: Yes (2) Renal insufficiency Status: Chronic Assessment and plan: See plan of care listed below. Current Visit: Yes (3) Chronic anticoagulation Status: Chronic Assessment and plan: See plan of care listed below. Current Visit: Yes (4) Dyslipidemia Status: Chronic Assessment and plan: See plan of care listed below. Current Visit: Yes (5) Elevated troponin Status: Acute Assessment and plan: See plan of care listed below. Current Visit: Yes (6) Hypomagnesemia Status: Acute Assessment and plan: See plan of care listed below. Current Visit: Yes (7) Elevated liver enzymes Status: Acute Assessment and plan: See plan of care listed below. Current Visit: Yes (8) Pulmonary edema Status: Acute Assessment and plan: See plan of care listed below. Current Visit: Yes Cardiology - PN: Subj Interval history: Tax Attorney: Dr. Kemp PCP: Dr. Dariel Otero Ms. Roth is a 81 year old female is routinely followed by Dr mcgraw. Patient is a poor historian. She is a questionable history of coronary artery disease. She reports that she has never undergone heart catheterization and does not have any coronary stents. However, in Dr. Kemp's note she has diagnosed with coronary artery disease. However, no heart catheterization reports were found in electronic medical record. She has past medical history of hypertension, dyslipidemia, former smoker (quit in 1956), chronic atrial fibrillation chronically anticoagulated with Coumadin. She was last seen in the cardiology clinic January 2016. At that time, she was offered to change her anticoagulation to a NOAC. She declined. Patient presented to [facility] with complaints of weakness, fatigue and bilateral lower extremity edema. Upon arrival to the emergency department she was noted to be in atrial fibrillation with rapid ventricular response, heart rate 150s- 160s. She was then started on Cardizem drip. Echocardiogram was completed which revealed a new cardiomyopathy, ejection fraction of 15%. 4+ tricuspid regurgitation noted. Subsequently, patient was started on a dobutamine drip. July 14, 2016 Update: Patient was seen and examined on the telemetry unit. She remains in atrial fibrillation with rapid ventricular response. Will continue to hydrate dobutamine drip off. She is without chest pain, heaviness and tightness. She does however complain of mild abdominal pain and tenderness. We will consult GI at this time. KUB and liver ultrasound ordered. INR 3.9 today. 0.65 dose of Coumadin is currently on hold. Magnesium is 1.6. Magnesium replacement protocol ordered. Liver enzymes and total bilirubin remain elevated. BNP yesterday was noted to be 870. Will obtain chest x-ray in the morning. Patient is currently receiving IV Lasix and diuresing well. Vital signs are stable. Assessment/plan: 1. ATRIAL FIBRILLATION WITH RAPID VENTRICULAR RESPONSE - Patient has history of chronic atrial fibrillation. Chronically anticoagulated with Coumadin. Continue Coumadin this hospitalization. Daily INR. Patient did not respond well to Cardizem. After discussing case with Dr. Mi, we will discontinue Dobutamine drip. If patient remains in RVR will consider adding Amiodarone drip. Reluctant to begin amiodarone and/or Digoxin as she has elevated liver enzymes as well as elevated creatinine. 2. ELEVATED TROPONIN - Troponin only mildly elevated. I suspect this is most likely secondary to patient's rapid ventricular response and renal insufficiency. Patient is without anginal symptoms. 3. HYPERTENSION - Blood pressure is well controlled. Will continue current plan of care and further adjust as needed throughout her hospital stay. 4. HYPERLIPIDEMIA - Continue current plan of care with lipid lowering agent. 5. CHRONIC ANTICOAGULATION - Patient is chronically anticoagulated with Coumadin as she has chronic A. fib. INR 3.9 today. 0.625 dose of Coumadin is currently on hold. Daily INR. 6. RENAL INSUFFICIENCY - Improving. Will monitor this closely with daily BMP. 7. HYPOMAGNESEMIA - Magnesium 1.6. Magnesium replacement protocol ordered. Daily magnesium. 8. CARDIOMYOPATHY - Echocardiogram revealed a new cardiomyopathy, EF 15%. Continue IV Lasix, diuresing well. At this point, we will titrate off Dobutamine as patient is having rapid ventricular response. Continue ARB and beta david. Daily weights and strict I's and O's. 9. ELEVATED LIVER ENZYMES - Patient's liver enzymes as well as total bilirubin is elevated. Liver US ordered. Will consult GI. 10. ABDOMINAL PAIN - KUB ordered. Amylase and Lipase added to today's labs. Will consult GI. Further plan and addendum to follow per Dr. Mi. Exam (Progress Note) - Constitutional Vitals: Period Temp Pulse Resp BP Sys/Cook Pulse Ox Last 24 Hr 97 F-98.1 F 79-151 18-24 113-137/52-93 90-96 Exam: General:no acute distress. alert and oriented, mood and affect are normal HEENT: no new lesions, sclerae are clear, mouth and pharynx benign. Hard of hearing Neck: supple, trachea midline, no JVD noted Lungs: Few basilar rales. pt comfortable without accesory muscle use to assist with breathing. CV: Irregularly irregular rate and rhythm, tachycardia Abd: soft and slightly tender, Normal bowl sounds, no masses. Ext: no cyanosis, clubbing or edema Neuro: grossly intact without focal neurologic deficit. Result/EKG - Labs CBC & BMP: 07/14/16 04:16 07/14/16 04:16 Lab Results: I have reviewed the past 24 hour labs Labs: Laboratory Results - last 24 hr 07/14/16 07/14/16 07/14/16 04:16 04:16 04:16 WBC 8.6 RBC 4.06 Hgb 11.2 L Hct 34.3 L MCV 84.5 L MCH 28 MCHC 32.7 RDW 15.1 Plt Count 247 MPV 9.7 Neut % (Auto) 60.5 Lymph % (Auto) 28.2 [place] % (Auto) 8.6 Eos % (Auto) 2.3 Baso % (Auto) 0.1 Neut # (Auto) 5.2 Lymph # (Auto) 2.4 [place] # (Auto) 0.7 Eos # (Auto) 0.2 Baso # (Auto) 0.0 Immature Gran % 0.3 Nucleated RBC % 0.0 Immature Gran # 0.03 Nucleated RBCs # 0.00 INR 3.9 PT Patient/Control Mix 45.1 Sodium 147 H Potassium 4.0 Chloride 110 H Carbon Dioxide 27 Anion Gap 14.0 BUN 18 Creatinine 1.20 H GFR Calculation 42 BUN/Creatinine Ratio 15.00 Glucose 98 Calculated Osmolality 293.4 Calcium 8.4 L Magnesium 1.6 L Total Bilirubin Direct Bilirubin Indirect Bilirubin AST ALT Alkaline Phosphatase Total Protein Albumin Amylase Lipase 07/14/16 07/14/16 11:58 11:58 WBC RBC Hgb Hct MCV MCH MCHC RDW Plt Count MPV Neut % (Auto) Lymph % (Auto) [place] % (Auto) Eos % (Auto) Baso % (Auto) Neut # (Auto) Lymph # (Auto) [place] # (Auto) Eos # (Auto) Baso # (Auto) Immature Gran % Nucleated RBC % Immature Gran # Nucleated RBCs # INR PT Patient/Control Mix Sodium Potassium Chloride Carbon Dioxide Anion Gap BUN Creatinine GFR Calculation BUN/Creatinine Ratio Glucose Calculated Osmolality Calcium Magnesium Total Bilirubin 0.60 Direct Bilirubin 0.30 H Indirect Bilirubin 0.3 AST 69 H ALT 176 H Alkaline Phosphatase 73 Total Protein 5.4 L Albumin 2.6 L Amylase 37 Lipase 238.0 Quality Measures - Stroke Symptom Onset Unknown: No
--- NOTE | 2016-07-14 14:50 | XRay Report ---
History: Abdominal pain Date: 07/14/2016 Study: KUB Comparison exam: July 22, 2007 KUB The bowel gas pattern is nonspecific without crystal mechanical bowel obstruction or gross mass lesion. Multiple calcifications overlie the left upper abdomen. Nephrolithiasis on the left is not excluded. Surgical clips from previous cholecystectomy overlie the right upper abdomen. There is mild dextroscoliosis of the lumbar spine. There is moderate thoracolumbar spondylosis. Impression: No acute abdominal process. Left nephrolithiasis cannot be excluded PROCEDURE INTERPRETED AT [facility] DEPARTMENT OF RADIOLOGY Final Report Signed by: Dr. Karina Vizcaino
--- NOTE | 2016-07-14 15:00 | Gastrointestinal Consult Note ---
Assessment and Plan (1) Elevated liver function tests Status: Acute Assessment and plan: This patient likely has increased liver function tests secondary to recent episode of rapid ventricular rate and relative hypotension to multiple end organs. I am going to recheck the patient's liver function tests tomorrow. I do not see a need for checking hepatitis B and C nor autoimmune hepatitis or alpha-1 antitrypsin but if these levels remain persistently elevated we may wish to down the road. I will make sure that she gets an ultrasound of her liver looking for gallstones which could have transiently obstructed the GI tract although this typically presents with an elevation in direct bilirubin not interact. Cholestatic liver function tests are back to normal again at this point and the patient never did have an elevation of her alkaline phosphatase as would normally be seen with a biliary obstruction. Continue supporting her blood pressure and this will keep her transaminases from elevating in the future, most likely. The patient can follow-up with Dr. Stein in the future for endoscopy as needed down the road. Current Visit: Yes (2) Pharyngoesophageal dysphagia Status: Acute Assessment and plan: Although this patient has a history of esophageal stricturing requiring dilation in the past 54 [place] and then most recently to [address] Stein in 2010, she is not having any symptoms at this time. She is perfectly happy with her omeprazole 20 mg in the morning time to suppress her acidity in her stomach. Continue this medication when she leaves the hospital. Alternately we can advance her to a pantoprazole 40 mg dosing that would last longer, especially if this was taken prior to suppertime for best effect. Current Visit: Yes (3) Anemia Status: Acute Assessment and plan: The patient has a low-grade anemia with hematocrit of 36.1 and hemoglobin 12.1. She has had a colonoscopy and EGD in the past and no further workup is anticipated at this time. Current Visit: Yes History of Present Illness Chief complaint: Elevated bilirubin (predominantly indirect) and transaminase levels History of present illness: Ms. Roth is a 81 year old female Who has actually been seen by Dr. Mmoo Stein back in 03/15/02 for dysphagia at which time she had grade 2 esophagitis and small to moderate sized hiatal hernia as well as a distal esophageal stricture that required dilation to 54 [place] by single pass Morales dilator. Repeat was later arranged for 08/29/10 with subsequent dilation to 52 [place]--she has been given given Protonix on a as needed basis. She was later seen on by for GI bleeding Brian Vizcaino for GI bleeding, while on Coumadin therapy. She remains on Coumadin at this time with a INR that is between 3 and 4. She was not having any melena or bright red blood per rectum and was tilt negative with and stated that time that she had had a colonoscopy done 02/14/[address] Stein (diverticulosis only noted at that time) with a hematocrit of 39.2%-- no further workup was done. This patient presents now elevated liver function tests status post episode of atrial fibrillation with rapid ventricular response with rates into the 150s. Her total bilirubin went up to 2.0 with an indirect fraction of 1.5, alkaline phosphatase was 72 ALT was 152 AST of 141. Status post 1 day of stability with heart rates ranging between 79 to 138, but stable blood pressures, her liver function tests are improved markedly: ALT is up slightly at 176 but the AST is down to 69, direct bilirubin is 0.3, total bilirubin is 0.6 and alkaline phosphatase remains at 73. Ischemic hepatitis is suspected. We do not have old LFTs for comparison. The patient was started on a diltiazem drip for her fast heart rate in the emergency room which she has now been able to come off of. Her Coumadin is being held currently due to her INR of 4.1 yesterday and 3.9 today. Her other electrolytes appear to be fairly well balanced. The patient did have a troponin elevation to 0.084 and her BNP was last checked yesterday at 870. Albumin incidentally is slightly decreased to 2.6. Home Medications Medication Instructions Recorded Confirmed Type Aspirin EC Tab 81 mg PO QPM 07/11/16 07/11/16 History Carvedilol [Carvedilol] 12.5 mg PO QPM 07/11/16 07/11/16 History Multivitamin [Multivitamins] 1 each PO QAM 07/11/16 07/11/16 History Omeprazole [Omeprazole] 20 mg PO QAM 07/11/16 07/11/16 History Simvastatin [Simvastatin] 5 mg PO MOWEFR 07/11/16 07/11/16 History Warfarin [Coumadin] 0.625 mg PO SUMOWEFR 07/11/16 07/11/16 History Warfarin [Coumadin] 1.25 mg PO TUTHSA 07/11/16 07/11/16 History dilTIAZem HCl [Cartia XT] 120 mg PO QAM 07/11/16 07/11/16 History Allergies Allergy/AdvReac Type Severity Reaction Status Date / Time diphenhydramine AdvReac RASH Verified 07/11/16 10:30 [From Benadryl] Penicillins AdvReac RASH Verified 07/11/16 10:30 Medical,Surgical,& Family Hx - Medical History Cardio: History of: Cardiac Dysrhythmia (a fib), Hypertension (not on meds) Endocrine: History of: Dyslipidemia - Family History Family History: Reports;: Family Heart Disease - Social History Smoking Status: Former smoker Frequency of Alcohol Use: None Type of Drug Use: None Review of systems: Constitutional: Denies fever, chills, nausea, and vomiting Eyes: Denies dry eyes, and scleral icterus HENT: Denies headaches Cardiovascular: Denies acute chest pain and claudication but positive for extreme weakness Respiratory: Denies shortness of breath, wheezing, and difficulty breathing, denies cough Gastrointestinal: As noted in the HPI Genitourinary: Denies dysuria and hematuria Neurologic: Denies vision loss, and loss of sensation Musculoskeletal: She admits to some joint swelling, joint stiffness, and muscular weakness Psychiatric: Denies depression and norris symptoms Heme-Lymph: Admits to easy bruising, without lymph node enlargement or tenderness, night sweats, but she does have some excessive bleeding Allergies-immunologic: Denies pruritus and rhinorrhea Exam - Constitutional Vitals: Period Temp Pulse Resp BP Sys/Cook Pulse Ox Last 24 Hr 97 F-98.1 F 79-151 18-24 113-137/52-93 90-96 General appearance: no acute distress Exam: Constitutional: Well-developed, well-nourished, alert, and in no acute distress Head and face: Head: Normocephalic atraumatic Eyes: Conjunctiva without injection, no gross scleral icterus, pupils equal and round bilaterally, bilateral cataracts are present Ears: Moderately decreased to conversation in both ears Nose: External appearance is normal, nares patent Mouth: Oral mucous membranes moist, the patient is edentulous with well fitting dentures in the upper arch and no dentures in the lower arch. Neck: Normal appearance, no masses or tenderness, trachea midline Thyroid: Gland midline and appropriate size for age Respiratory: Normal respiratory effort, clear to auscultation without wheezes, rhonchi or rales Cardiovascular: Irregular rate and rhythm, normal S1, S2, the exam is without rubs, murmurs or gallops. Gastrointestinal: Nontender to palpation, normal active bowel sounds, tone normal without rigidity or guarding, no masses present, no hepatomegaly, no spleen tip felt. No rectal exam obtained. Lymphatic: Neck without adenopathy, axilla without lymphadenopathy present Musculoskeletal: Right and left lower extremities without evidence of edema Skin and subcutaneous tissue: No rashes or ulcerations noted, normal skin turgor, digits and nails without clubbing/cyanosis/deformities. Neurologic: The patient is grossly oriented to person place and time, cranial nerves show tongue movements are normal with normal tongue extrusion midline, light touch sensation is intact. Psychiatric: No hallucinations or delusions are present, does not appear depressed, she appears to be fairly lucid without gross dementia and can recall immediate and past events well Results - Labs CBC & BMP: 07/14/16 04:16 07/14/16 04:16 Quality Measures - Stroke Symptom Onset Unknown: No
[2016-07-14 16:49] LABS: Hepatitis A Ab IgM Quant 0.11 Index; Hepatitis A Ab IgM Result Negative (Negative); Hepatitis B Core IgM Quant 0.17 Index; Hepatitis B Core IgM Result Negative (Negative); Hepatitis B Surface Ag Quant < 0.10 Index; Hepatitis B Surface Ag Result Negative (Negative); Hepatitis C Virus Ab Quant 0.11 Index; Hepatitis C Virus Ab Result Negative (Negative)
[2016-07-14] MEDS: ASPIRIN EC 81 MG TABLET PO SCH ×2 (17:54→18:02)
[2016-07-15 06:13] LABS: Basophils % 0.2 % (0.0-0.8); Eosinophils # 0.4 10*3/uL (0.0-0.87); Hematocrit 35.3 VOL% (35.7-47.0); Hemoglobin 11.5 GM/DL (12.0-16.0); Immature Granulocytes % 0.4 %; Immature Granulocytes Absolute 0.03 #; Lymphocytes # 2.7 10*3/uL (1.4-4.0); Lymphocytes % 32.2 % (21.3-54.2); Mean Corpuscular HGB Conc 32.6 GM/DL (32-36); Mean Corpuscular Hemoglobin 28 PG (27-34); Mean Corpuscular Volume 84.7 FL (87-102); Mean Platelet Volume 9.7 FL (9.6-12.0); Monocytes # 0.6 10*3/uL (0.11-0.8); Monocytes % 7.7 % (1.7-12.7); Neutrophils # 4.5 10*3/uL (1.4-7.4); Neutrophils % 54.5 % (38.7-73.9); Platelet Count 273 T/CUMM (130-400); Red Blood Count 4.17 MC/CUMM (3.8-5.5); Red Cell Distribution Width 15.5 % (9.3-17.3); White Blood Count 8.3 T/CUMM (4-12)
[2016-07-15 06:22] LABS: INR 3.1
[2016-07-15 06:23] LABS: PT Patient Result 35.7 SECS
[2016-07-15 06:47] LABS: Calcium 8.4 MG/DL (8.5-10.1); Magnesium 1.5 MG/DL (1.8-2.4); Osmolality,Calculated 288.7 MOS/KG (273-304); Potassium 4.4 MMOL/L (3.5-5.1)
[2016-07-15 06:48] LABS: Albumin 2.9 G/DL (3.4-5.0); Bilirubin,Direct 0.3 MG/DL (0.0-0.20); Bilirubin,Indirect 0.5 MG/DL (0.0-1.0); Bilirubin,Total 0.8 MG/DL (0.2-1.0); Total Protein 5.7 G/DL (6.4-8.3)
[2016-07-15] MEDS: DIGOXIN 0.25 MG TABLET PO SCH ×3 (06:48→11:11)
--- NOTE | 2016-07-15 07:44 | Family Practice Progress Note ---
Family Practice - PN: Subj Interval history: Patient states she is feeling better this morning and not have any dyspnea at rest. She is anuric fibrillation with controlled rate at present. She told me she was scheduled for MRI this morning but I told her I think she was scheduled for an ultrasound. She did have slight LFT elevations. She denies any abdominal pain. Exam (Progress Note) - Constitutional Vitals: Period Temp Pulse Resp BP Sys/Cook Pulse Ox Last 24 Hr 96.6 F-98.4 F 121-151 18-24 112-145/74-93 90-97 Exam: Objective a well-developed white female no acute distress. She is awake alert and able give good history. She has no dyspnea at rest. Cardiovascular: Heart rates are regular with no gallops. She has a soft systolic ejection murmur right base. Patient is in atrial fibrillation on monitor. Respiratory: Lungs clear to auscultation bilaterally. Abdomen: Abdomen soft tender to palpation. Results - Labs CBC & BMP: 07/15/16 05:26 07/15/16 05:26 Lab Results: I have reviewed the past 24 hour labs Assessment and Plan (1) Atrial fibrillation with rapid ventricular response Status: Acute Assessment and plan: 07/14/2016: Dobutrex has been added and her heart rate is improved. 07/15/2016: Patient has improved. Current Visit: Yes Quality Measures - Stroke Symptom Onset Unknown: No
--- NOTE | 2016-07-15 08:23 | XRay Report ---
XR chest 2V Indication: Heart failure Comparison: Chest x-ray dated July 11, 2016 Technique: Frontal and lateral views of the chest Findings: Continued cardiomegaly. Mildly progressed bibasilar atelectasis/consolidation as well as right suprahilar atelectasis/consolidation and bilateral pleural fluid. Osseous and surrounding soft tissue structures appear grossly unchanged. IMPRESSION: As above. PROCEDURE INTERPRETED AT [facility] DEPARTMENT OF RADIOLOGY Final Report Signed by: Dr Teddy Chavez
[2016-07-15] MEDS: DILTIAZEM CD 120 MG CAPSULE PO SCH (08:27)
[2016-07-15] MEDS: DOCUSATE SODIUM 100 MG CAPSULE PO SCH ×2 (08:27→21:29)
[2016-07-15] MEDS: MULTIVITAMIN (CENTRUM) TABLET PO SCH (08:28)
[2016-07-15] MEDS: PANTOPRAZOLE 40 MG TABLET PO SCH (08:29)
[2016-07-15] MEDS: LOSARTAN 25 MG TABLET PO SCH (08:29)
[2016-07-15] MEDS: ISOSORBIDE MONONITRATE 30 MG TABLET PO SCH (08:29)
[2016-07-15] MEDS: BISOPROLOL 5 MG TABLET PO SCH (08:29)
[2016-07-15] MEDS: hydrALAZINE 10 MG TABLET PO SCH ×3 (08:30→21:29)
[2016-07-15] MEDS: FUROSEMIDE 40 MG/4 ML VIAL IV SCH (08:30)
[2016-07-15] MEDS: MAGNESIUM SULF RIDER 2 GM in PREMIX 1 EACH IV PRN (08:31)
--- NOTE | 2016-07-15 09:50 | Ultrasound Report ---
History: Elevated liver function tests Date: 07/15/2016 Study: Hepatic ultrasound Comparison exam: No previous similar currently available Real-time ultrasound images are captured and archived. The liver is normal in size at 12.6 cm length. There is no focal hepatic mass. There is hepatopedal flow in the portal vein. The proximal common bile duct measures 5.4 mm diameter and 9.9 mm more distally. There is no obvious choledochal stone. The pancreatic head is not well seen. The gallbladder is surgically absent. The partially visualized pancreatic body is normal. The right kidney appears normal and measures 9.2 cm length. Incidental note is made of small right-sided pleural effusion. Impression: No focal hepatic mass. Ectasia of the common bile duct may be related to patient age and postcholecystectomy state. There is no gross choledochal stone. The pancreatic head is obscured by bowel gas on this exam. There is no intrahepatic biliary dilatation Small right-sided pleural effusion PROCEDURE INTERPRETED AT [facility] DEPARTMENT OF RADIOLOGY Final Report Signed by: Dr. Karina Vizcaino
--- NOTE | 2016-07-15 10:00 | Physician Query Form ---
CLICK EDIT DOCUMENT TO SELECT QUERY ANSWER --> OK --> SIGN Cesia Sharma RN Clinical Cotton Grader W) [phone] (f) [phone] [email or web address] PROVIDERS: Make your selection(s) from the choices in EACH section by typing an "x" and enter comments in the comment section. Please use your independent medical judgment in providing your response. This request does not imply that any particular answer is desired or expected. CLINICAL INDICATORS: (Providers should not edit this section) Based on documentation of "renal insufficiency", creatinine on admission of 1.60 with a GFR of 30 and decreased to 1.20. Clarify which of the following most accurately represents the patient's renal status: ( ) Acute kidney injury (non-traumatic) ( ) Acute renal failure ( ) Acute renal failure with underlying Chronic Kidney Disease (CKD) - please provide stage below (x ) CKD - please provide stage below ( ) Other, please specify: ( ) Clinically unable to determine Chronic Kidney Disease Stages Source: National Kidney Disease Foundation ( ) Stage I (eGFR > or = 90) ( ) Stage II (eGFR 60 - 89) (x ) Stage III (eGFR 30 - 59) ( ) Stage IV (eGFR 15 - 29) ( ) Stage V (eGFR < 15 or dialysis) COMMENTS: PLEASE ALSO DOCUMENT RESPONSE IN PROGRESS NOTES AND/OR DISCHARGE SUMMARY Use of terms such as suspected, likely, or probable (associated with a specific diagnosis that is being evaluated, monitored, or treated as if it exists) are acceptable and can be restated in the discharge summary if not ruled out. MTDD
--- NOTE | 2016-07-15 14:50 | Cardiology Progress Note ---
Assessment and Plan (1) Atrial fibrillation with rapid ventricular response Status: Acute Assessment and plan: See plan of care listed below. Current Visit: Yes (2) Renal insufficiency Status: Chronic Assessment and plan: See plan of care listed below. Current Visit: Yes (3) Chronic anticoagulation Status: Chronic Assessment and plan: See plan of care listed below. Current Visit: Yes (4) Dyslipidemia Status: Chronic Assessment and plan: See plan of care listed below. Current Visit: Yes (5) Elevated troponin Status: Acute Assessment and plan: See plan of care listed below. Current Visit: Yes (6) Hypomagnesemia Status: Acute Assessment and plan: See plan of care listed below. Current Visit: Yes (7) Elevated liver enzymes Status: Acute Assessment and plan: See plan of care listed below. Current Visit: Yes (8) Pulmonary edema Status: Acute Assessment and plan: See plan of care listed below. Current Visit: Yes Exam (Progress Note) - Constitutional Vitals: Period Temp Pulse Resp BP Sys/Cook Pulse Ox Last 24 Hr 96.6 F-98.4 F 115-149 18-22 112-145/74-92 92-97 Result/EKG - Labs CBC & BMP: 07/15/16 05:26 07/15/16 05:26 Labs: Laboratory Results - last 24 hr 07/14/16 07/14/16 07/15/16 11:30 20:07 05:26 WBC RBC Hgb Hct MCV MCH MCHC RDW Plt Count MPV Neut % (Auto) Lymph % (Auto) [place] % (Auto) Eos % (Auto) Baso % (Auto) Neut # (Auto) Lymph # (Auto) [place] # (Auto) Eos # (Auto) Baso # (Auto) Immature Gran % Nucleated RBC % Immature Gran # Nucleated RBCs # INR PT Patient/Control Mix Sodium 145 Potassium 4.4 Chloride 109 H Carbon Dioxide 29 Anion Gap 11.4 BUN 14 Creatinine 1.20 H GFR Calculation 43 BUN/Creatinine Ratio 11.00 Glucose 104 POC Glucose 139 H Calculated Osmolality 288.7 Calcium 8.4 L Magnesium 1.5 L Total Bilirubin Direct Bilirubin Indirect Bilirubin AST ALT Alkaline Phosphatase Total Protein Albumin Hepatitis A IgM Ab Negative Hep Bs Antigen Negative Hep B Core IgM Ab Negative Hepatitis C Antibody Negative 07/15/16 07/15/16 07/15/16 05:26 05:26 05:26 WBC 8.3 RBC 4.17 Hgb 11.5 L Hct 35.3 L MCV 84.7 L MCH 28 MCHC 32.6 RDW 15.5 Plt Count 273 MPV 9.7 Neut % (Auto) 54.5 Lymph % (Auto) 32.2 [place] % (Auto) 7.7 Eos % (Auto) 5.0 Baso % (Auto) 0.2 Neut # (Auto) 4.5 Lymph # (Auto) 2.7 [place] # (Auto) 0.6 Eos # (Auto) 0.4 Baso # (Auto) 0.0 Immature Gran % 0.4 Nucleated RBC % 0.0 Immature Gran # 0.03 Nucleated RBCs # 0.00 INR 3.1 PT Patient/Control Mix 35.7 D Sodium Potassium Chloride Carbon Dioxide Anion Gap BUN Creatinine GFR Calculation BUN/Creatinine Ratio Glucose POC Glucose Calculated Osmolality Calcium Magnesium Total Bilirubin 0.80 Direct Bilirubin 0.30 H Indirect Bilirubin 0.5 AST 51 H ALT 155 H Alkaline Phosphatase 81 Total Protein 5.7 L Albumin 2.9 L Hepatitis A IgM Ab Hep Bs Antigen Hep B Core IgM Ab Hepatitis C Antibody Quality Measures - Stroke Symptom Onset Unknown: No
--- NOTE | 2016-07-15 15:29 | Cardiology Progress Note ---
Assessment and Plan (1) Atrial fibrillation with rapid ventricular response Status: Acute Assessment and plan: See plan of care listed below. Current Visit: Yes (2) Renal insufficiency Status: Chronic Assessment and plan: See plan of care listed below. Current Visit: Yes (3) Chronic anticoagulation Status: Chronic Assessment and plan: See plan of care listed below. Current Visit: Yes (4) Dyslipidemia Status: Chronic Assessment and plan: See plan of care listed below. Current Visit: Yes (5) Elevated troponin Status: Acute Assessment and plan: See plan of care listed below. Current Visit: Yes (6) Hypomagnesemia Status: Acute Assessment and plan: See plan of care listed below. Current Visit: Yes (7) Elevated liver enzymes Status: Acute Assessment and plan: See plan of care listed below. Current Visit: Yes (8) Congestive heart failure Status: Acute Assessment and plan: See plan of care listed below. 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 Kemp PCP: Dr. Dariel Otero Ms. Roth is a 81 year old female is routinely followed by Dr mcgraw. Patient is a poor historian. She is a questionable history of coronary artery disease. She reports that she has never undergone heart catheterization and does not have any coronary stents. However, in Dr. Kemp's note she has diagnosed with coronary artery disease. However, no heart catheterization reports were found in electronic medical record. She has past medical history of hypertension, dyslipidemia, former smoker (quit in 1956), chronic atrial fibrillation chronically anticoagulated with Coumadin. She was last seen in the cardiology clinic January 2016. At that time, she was offered to change her anticoagulation to a NOAC. She declined. Patient presented to [facility] with complaints of weakness, fatigue and bilateral lower extremity edema. Upon arrival to the emergency department she was noted to be in atrial fibrillation with rapid ventricular response, heart rate 150s- 160s. She was then started on Cardizem drip. Echocardiogram was completed which revealed a new cardiomyopathy, ejection fraction of 15%. 4+ tricuspid regurgitation noted. Subsequently, patient was started on a dobutamine drip. July 15, 2016 Update: Patient was seen and examined on the telemetry unit. She remains in atrial fibrillation with rapid ventricular response, heart rates ranging from 100-150. Dobutamine was titrated off yesterday. Digoxin was added to medication regimen yesterday. Heart rate is much better controlled today ranging from 105-115. She is without chest pain, heaviness and tightness. Continues to complain of mild abdominal pain and tenderness. GI is following. KUB x-ray yesterday did not reveal any acute abdominal process. Left nephrolithiasis could not be excluded. INR 3.1 today. Preadmission Coumadin dosage has been reinitiated. Magnesium is 1.5. Magnesium replacement protocol is ordered. Liver enzymes and total bilirubin remain elevated. Patient is currently receiving IV Lasix and diuresing well. Will monitor creatinine closely, today 1.2. Vital signs are stable. Assessment/plan: 1. ATRIAL FIBRILLATION WITH RAPID VENTRICULAR RESPONSE - Chronic atrial fibrillation. Anticoagulated with Coumadin. Daily INR. Patient was loaded with digoxin yesterday. She responded well and heart rate is much better controlled ranging from 105-115. After discussing with Dr. Mi, we will continue with current plan of care at this time and adjust further as needed throughout her hospital stay. 2. ELEVATED TROPONIN - Troponin only mildly elevated. I suspect this was most likely secondary to patient's rapid ventricular response and renal insufficiency. Patient is without anginal symptoms. 3. HYPERTENSION - Blood pressure is well controlled. Will continue current plan of care and further adjust as needed throughout her hospital stay. 4. HYPERLIPIDEMIA - Continue current plan of care with lipid lowering agent. 5. CHRONIC ANTICOAGULATION - Patient is chronically anticoagulated with Coumadin as she has chronic A. fib. INR 3.1 today. Preadmission dosage of Coumadin has been reinitiated. Daily INR. 6. RENAL INSUFFICIENCY - Improving. Will monitor this closely with daily BMP. 7. HYPOMAGNESEMIA - Magnesium 1.5. Magnesium replacement protocol ordered. Daily magnesium. 8. CARDIOMYOPATHY - Echocardiogram revealed a new cardiomyopathy, EF 15%. Ischemic workup may be considered in the future. Patient is without anginal symptoms. Continue IV Lasix, diuresing well. Continue ARB and beta david. Daily weights and strict I's and O's. 9. CHF - Continue current plan of care with Lasix. Monitor creatinine closely with daily BMP. Daily weights and strict I's and ice. 9. ELEVATED LIVER ENZYMES - Currently being worked up per GI. 10. ABDOMINAL PAIN - Current workup per GI. Further plan and addendum to follow per Dr. Mi. Exam (Progress Note) - Constitutional Vitals: Period Temp Pulse Resp BP Sys/Cook Pulse Ox Last 24 Hr 96.6 F-98.4 F 115-149 18-22 112-145/74-92 92-97 Exam: General:no acute distress. alert and oriented, mood and affect are normal HEENT: no new lesions, sclerae are clear, mouth and pharynx benign. Hard of hearing Neck: supple, trachea midline, no JVD noted Lungs: Clear to auscultation throughout. pt comfortable without accesory muscle use to assist with breathing. CV: Irregularly irregular rate and rhythm, tachycardia Abd: soft and slightly tender, Normal bowl sounds, no masses. Ext: no cyanosis, clubbing or edema Neuro: grossly intact without focal neurologic deficit. Result/EKG - Labs CBC & BMP: 07/15/16 05:26 07/15/16 05:26 Lab Results: I have reviewed the past 24 hour labs Labs: Laboratory Results - last 24 hr 07/14/16 07/14/16 07/15/16 11:30 20:07 05:26 WBC RBC Hgb Hct MCV MCH MCHC RDW Plt Count MPV Neut % (Auto) Lymph % (Auto) [place] % (Auto) Eos % (Auto) Baso % (Auto) Neut # (Auto) Lymph # (Auto) [place] # (Auto) Eos # (Auto) Baso # (Auto) Immature Gran % Nucleated RBC % Immature Gran # Nucleated RBCs # INR PT Patient/Control Mix Sodium 145 Potassium 4.4 Chloride 109 H Carbon Dioxide 29 Anion Gap 11.4 BUN 14 Creatinine 1.20 H GFR Calculation 43 BUN/Creatinine Ratio 11.00 Glucose 104 POC Glucose 139 H Calculated Osmolality 288.7 Calcium 8.4 L Magnesium 1.5 L Total Bilirubin Direct Bilirubin Indirect Bilirubin AST ALT Alkaline Phosphatase Total Protein Albumin Hepatitis A IgM Ab Negative Hep Bs Antigen Negative Hep B Core IgM Ab Negative Hepatitis C Antibody Negative 07/15/16 07/15/16 07/15/16 05:26 05:26 05:26 WBC 8.3 RBC 4.17 Hgb 11.5 L Hct 35.3 L MCV 84.7 L MCH 28 MCHC 32.6 RDW 15.5 Plt Count 273 MPV 9.7 Neut % (Auto) 54.5 Lymph % (Auto) 32.2 [place] % (Auto) 7.7 Eos % (Auto) 5.0 Baso % (Auto) 0.2 Neut # (Auto) 4.5 Lymph # (Auto) 2.7 [place] # (Auto) 0.6 Eos # (Auto) 0.4 Baso # (Auto) 0.0 Immature Gran % 0.4 Nucleated RBC % 0.0 Immature Gran # 0.03 Nucleated RBCs # 0.00 INR 3.1 PT Patient/Control Mix 35.7 D Sodium Potassium Chloride Carbon Dioxide Anion Gap BUN Creatinine GFR Calculation BUN/Creatinine Ratio Glucose POC Glucose Calculated Osmolality Calcium Magnesium Total Bilirubin 0.80 Direct Bilirubin 0.30 H Indirect Bilirubin 0.5 AST 51 H ALT 155 H Alkaline Phosphatase 81 Total Protein 5.7 L Albumin 2.9 L Hepatitis A IgM Ab Hep Bs Antigen Hep B Core IgM Ab Hepatitis C Antibody Quality Measures - Stroke Symptom Onset Unknown: No
--- NOTE | 2016-07-15 16:56 | Gastrointestinal Progress Note ---
Assessment and Plan (1) Elevated liver function tests Status: Acute Assessment and plan: This patient likely has increased liver function tests secondary to recent episode of rapid ventricular rate and relative hypotension to multiple end organs. I am going to recheck the patient's liver function tests tomorrow. I do not see a need for checking hepatitis B and C nor autoimmune hepatitis or alpha-1 antitrypsin but if these levels remain persistently elevated we may wish to down the road. I will make sure that she gets an ultrasound of her liver looking for gallstones which could have transiently obstructed the GI tract although this typically presents with an elevation in direct bilirubin not interact. Cholestatic liver function tests are back to normal again at this point and the patient never did have an elevation of her alkaline phosphatase as would normally be seen with a biliary obstruction. Continue supporting her blood pressure and this will keep her transaminases from elevating in the future, most likely. The patient can follow-up with Dr. Stein in the future for endoscopy as needed down the road. 07/15/16--The patient's liver function tests continue to improve. ALT and AST continue the downward trend consistent with a probable ischemic hepatitis episode recently. The ultrasound confirms that there does not appear to be any biliary obstruction and does indicate the patient is status post cholecystectomy with a slightly dilated duct as is seen after the gallbladder has been resected in a number of cases. No masses are seen within the liver. At this point I would suggest following up liver function tests as an outpatient and referring her back to Dr. Stein or myself if they remain persistently elevated. Current Visit: Yes (2) Pharyngoesophageal dysphagia Status: Acute Assessment and plan: Although this patient has a history of esophageal stricturing requiring dilation in the past [address] and then most recently to [address] Stein in 2010, she is not having any symptoms at this time. She is perfectly happy with her omeprazole 20 mg in the morning time to suppress her acidity in her stomach. Continue this medication when she leaves the hospital. Alternately we can advance her to a pantoprazole 40 mg dosing that would last longer, especially if this was taken prior to suppertime for best effect. 07/15/16--The patient is doing well on her pantoprazole 40 mg per day, she continues on her low-grade warfarin dose and is awaiting appropriate titration of this for her INR of around 2. Currently the INR is down from 3.9-->3.1. She is not having any dysphagia and does not need to be redilated. She previously had this done back [place] [address] Stein and can see him again in the future for this, as needed. Current Visit: Yes (3) Anemia Status: Acute Assessment and plan: The patient has a low-grade anemia with hematocrit of 36.1 and hemoglobin 12.1. She has had a colonoscopy and EGD in the past 6 years, no further workup is anticipated at this time. Current Visit: Yes (4) Periumbilical pain Status: Acute Assessment and plan: This is likely due to the patient's coughing that she is having producing vague epigastric and periumbilical pain. She is really not having any diarrhea or constipation issues that need treatment and she is getting the acid in her stomach suppressed with her pantoprazole. Her gallbladder is already been resected. Her pain is not consistent with mesenteric ischemia. There is little more to do at this point. The pain is low-grade not to be treated with tramadol versus Tylenol. Current Visit: Yes Gastroenterology - PN: Subj Interval history: The patient stated to me that she is still having some mild periumbilical pain that she characterizes as a soreness. This is worse when she is coughing hard and may be muscular tenderness associated with previous bouts of coughing in my opinion. She does not have any typical diarrhea or constipation. Ultrasound was done and demonstrates an ectatic common bile duct slightly dilated in its distal portion to 9.9 mm but up higher goes down to about 5.1 mm and there is no ductal dilatation noted. She is a history of gallbladder resection and so a slightly dilated duct is not unusual in this circumstance. Her liver function tests have continued to improve with AST down from 69-51, ALT down from 76 176- 155. Alkaline phosphatase and bilirubin remain normal. Exam (Progress Note) - Constitutional Vitals: Period Temp Pulse Resp BP Sys/Cook Pulse Ox Last 24 Hr 96.6 F-98.4 F 115-149 18-22 112-145/74-92 92-96 General appearance: no acute distress - Eye Eye exam: Present: EOMI. Absent: scleral icterus - Respiratory Respiratory exam: Present: clear to auscultation bilaterally. Absent: rhonchi, stridor, wheezes - Cardiovascular Cardiovascular exam: Present: regular rate and rhythm - GI/Abdominal GI/Abdominal exam: Present: normal bowel sounds, tenderness (Mild tenderness in the epigastric region), soft. Absent: distended, guarding, rebound - Extremities Exam Extremities exam: Present: edema (Trace) - Neurological Exam Neurological exam: Present: alert, oriented X3 - Psychiatric Psychiatric exam: Present: normal affect, normal mood - Skin Skin exam: Present: warm Results - Labs CBC & BMP: 07/15/16 05:26 07/15/16 05:26
[2016-07-15] MEDS: ASPIRIN EC 81 MG TABLET PO SCH (18:32)
[2016-07-16 06:15] LABS: Basophils % 0.2 % (0.0-0.8); Eosinophils # 0.4 10*3/uL (0.0-0.87); Eosinophils % 4.9 % (0.00-10.9); Hematocrit 37.4 VOL% (35.7-47.0); Hemoglobin 12.3 GM/DL (12.0-16.0); Immature Granulocytes % 0.3 %; Immature Granulocytes Absolute 0.03 #; Lymphocytes # 2.6 10*3/uL (1.4-4.0); Mean Corpuscular HGB Conc 32.9 GM/DL (32-36); Mean Corpuscular Hemoglobin 28 PG (27-34); Mean Platelet Volume 9.7 FL (9.6-12.0); Monocytes # 0.8 10*3/uL (0.11-0.8); Monocytes % 8.6 % (1.7-12.7); Neutrophils # 4.9 10*3/uL (1.4-7.4); Platelet Count 278 T/CUMM (130-400); Red Blood Count 4.45 MC/CUMM (3.8-5.5); Red Cell Distribution Width 15.1 % (9.3-17.3); White Blood Count 8.7 T/CUMM (4-12)
[2016-07-16 06:23] LABS: INR 2.2
[2016-07-16 06:40] LABS: Calcium 8.6 MG/DL (8.5-10.1); Magnesium 1.6 MG/DL (1.8-2.4); Osmolality,Calculated 286.7 MOS/KG (273-304); Potassium 3.6 MMOL/L (3.5-5.1)
--- NOTE | 2016-07-16 08:16 | Family Practice Progress Note ---
Family Practice - PN: Subj Interval history: Patient is doing well denies any discomfort. Patient still in atrial fibrillation but rate more controlled. I told her I thought she go home and cardiology agreed. Her liver ultrasound was unremarkable. I suspect her elevated liver enzymes may been due to her A. fib with rapid ventricular response. Will repeat her liver enzymes on return to clinic however. Exam (Progress Note) - Constitutional Vitals: Period Temp Pulse Resp BP Sys/Cook Pulse Ox Last 24 Hr 97.0 F-98.5 F 67-148 16-20 114-174/68-97 82-93 Exam: Objective a well-developed white female no acute distress. She is awake alert and able give good history. She has no dyspnea at rest. Cardiovascular: Heart rates are regular with no gallops. She has a soft systolic ejection murmur right base. Patient is in atrial fibrillation on monitor. Respiratory: Lungs clear to auscultation bilaterally. Abdomen: Abdomen soft tender to palpation. Results - Labs CBC & BMP: 07/16/16 04:12 07/16/16 04:12 Lab Results: I have reviewed the past 24 hour labs - Diagnostic Findings Procedure: Ultrasound: report reviewed by me (No abnormality seen on liver ultrasound.) Assessment and Plan (1) Atrial fibrillation with rapid ventricular response Status: Acute Assessment and plan: 07/14/2016: Dobutrex has been added and her heart rate is improved. 07/15/2016: Patient has improved. 07/16/2016: Patient's heart rate is improved. Current Visit: Yes Quality Measures - Stroke Symptom Onset Unknown: No
[2016-07-16] MEDS: BISOPROLOL 5 MG TABLET PO SCH (09:52)
[2016-07-16] MEDS: MULTIVITAMIN (CENTRUM) TABLET PO SCH (09:52)
[2016-07-16] MEDS: DOCUSATE SODIUM 100 MG CAPSULE PO SCH (09:52)
[2016-07-16] MEDS: LOSARTAN 25 MG TABLET PO SCH (09:52)
[2016-07-16] MEDS: PANTOPRAZOLE 40 MG TABLET PO SCH (09:53)
[2016-07-16] MEDS: ISOSORBIDE MONONITRATE 30 MG TABLET PO SCH (09:53)
[2016-07-16] MEDS: hydrALAZINE 10 MG TABLET PO SCH ×2 (09:53→14:22)
[2016-07-16] MEDS: DILTIAZEM CD 120 MG CAPSULE PO SCH (09:53)
[2016-07-16] MEDS: FUROSEMIDE 40 MG/4 ML VIAL IV SCH (10:00)
[2016-07-16] MEDS: SIMVASTATIN 10 MG TABLET PO SCH (14:23)
[2016-07-16] MEDS ORDERED: MAGNESIUM OXIDE 400 MG TABLET PO SCH (15:00)
--- NOTE | 2016-07-16 16:31 | Discharge Summary ---
Hospital Course - Hospital Course Hospital Course: Patient is a 81-year-old white female presented emergency room with complaint of chest pain and weakness. Patient was found to have atrial fibrillation with rapid ventricular response. Patient has a history of chronic atrial fibrillation but cannot recall being this tired and weak in the past. Patient was admitted my services started on IV Cardizem and IV Dobutrex that she was noted to have a low EF on her echocardiogram. Patient was seen by Dr. Barry and then Dr. Mi and medication adjustments were made. Patient has returned to her normal and states she is not having any chest pain or shortness of breath. She is maintaining atrial fibrillation but her rate is well controlled at present. Patient may discharge home today and I will follow her up in the office in 1 month's time Diagnosis - Discharge Diagnosis (1) Atrial fibrillation with rapid ventricular response Status: Chronic Specialty Discharge - Follow Up or Referrals Follow up with: Kd Kemp MD [Physician] - 08/08/16 9:40 am (GET PT CHECKED AT [facility] OFFICE ) Discharge Plan - Discharge Data Disposition: Disch To Home/Self Care Condition at Discharge: Stable Discharge Diet: advance to your usual diet Activity: resume usual activities as tolerated Hygiene: no restrictions Weight Bearing at Discharge: full weight bearing Contact your physician if you experience:: fever over 101 - Discharge Medications New Bisoprolol [Zebeta] 10 mg PO DAILY #30 tablet Digoxin Tab [Lanoxin Tab] 0.125 mg PO DAILY@1300 #30 tablet Isosorbide Mononitrate [Imdur] 15 mg PO DAILY #30 tablet Losartan [Cozaar] 25 mg PO DAILY #30 tablet Magnesium Oxide 400 mg PO BID #60 tablet hydrALAZINE TAB [Apresoline Tab] 10 mg PO TID #90 tablet Acetaminophen Tab [Tylenol Tab] 650 mg PO Q6H PRN #0 tablet PRN Reason: Fever > 100.4 Or Headache Diltiazem Cd Cap [Cardizem CD] 240 mg PO DAILY #30 capsule Warfarin [Coumadin] 1.25 mg PO TuThSa@1800 tablet Continue Simvastatin 5 mg PO MOWEFR Multivitamin [Multivitamins] 1 each PO QAM Aspirin EC Tab 81 mg PO QPM Warfarin [Coumadin] 1.25 mg PO TUTHSA Omeprazole 20 mg PO QAM Warfarin [Coumadin] 0.625 mg PO SUMOWEFR Discontinued dilTIAZem HCl [Cartia XT] 120 mg PO QAM Carvedilol [Carvedilol] 12.5 mg PO QPM - Follow Up or Referral Follow Up: Kd Kemp MD [Physician] - 08/08/16 9:40 am (GET PT CHECKED AT [facility] OFFICE ) Dariel Otero MD [Primary Care Provider] - 1 Month - Forms/Instructions Exam - Constitutional Vitals: Period Temp Pulse Resp BP Sys/Cook Pulse Ox Last 24 Hr 97.2 F-98.5 F 67-112 16-18 134-174/68-81 82-96 Exam: Objective a well-developed white female no acute distress. She is awake alert and able give good history. She has no dyspnea at rest. Cardiovascular: Heart rates are regular with no gallops. She has a soft systolic ejection murmur right base. Patient is in atrial fibrillation on monitor. Respiratory: Lungs clear to auscultation bilaterally. Abdomen: Abdomen soft tender to palpation. Discharge Results Procedures and tests throughout hospitalization: Pending Orders 07/17/16 04:00 CBC [Comp Blood Count Auto Diff] IN AM Prothrombin Time INR IN AM 07/18/16 04:00 CBC [Comp Blood Count Auto Diff] IN AM Prothrombin Time INR IN AM Labs on day of discharge: Labs from last 24 hours 07/16/16 07/16/16 07/16/16 04:12 04:12 04:12 WBC 8.7 RBC 4.45 Hgb 12.3 Hct 37.4 MCV 84.0 L MCH 28 MCHC 32.9 RDW 15.1 Plt Count 278 MPV 9.7 Neut % (Auto) 56.0 Lymph % (Auto) 30.0 Gar[place] % (Auto) 8.6 Eos % (Auto) 4.9 Baso % (Auto) 0.2 Neut # (Auto) 4.9 Lymph # (Auto) 2.6 Gar[place] # (Auto) 0.8 Eos # (Auto) 0.4 Baso # (Auto) 0.0 Immature Gran % 0.3 Nucleated RBC % 0.0 Immature Gran # 0.03 Nucleated RBCs # 0.00 INR 2.2 PT Patient/Control Mix 25.0 D Sodium 145 Potassium 3.6 Chloride 101 Carbon Dioxide 33 H Anion Gap 14.6 BUN 12 Creatinine 1.20 H GFR Calculation 42 BUN/Creatinine Ratio 10.00 Glucose 81 Calculated Osmolality 286.7 Calcium 8.6 Magnesium 1.6 L INR is therapeutic DS: Provider Date of admission: 07/12/16 08:42 Primary care physician: Dariel Otero MD Attending physician on admission: Dariel Otero MD Consults: 07/14/16 11:44 Consult to Physician [CONS] Routine Comment: Elevated liver enzymes Consulting Provider: Emil Reyes Consult to Specialist Group: Gastroenterology Person Notified: CARLOS ENRIQUE Date Notified: 07/14/16 Time Notified: 12:50 Discharging clinician: Dariel Otero MD Expected date of discharge: 07/16/16
[2016-07-16 17:10] VITALS: BP 134/91
[2016-07-16] MEDS: WARFARIN 2.5 MG TABLET PO SCH (17:47)
--- NOTE | 2016-07-16 18:41 | Cardiology Progress Note ---
Jesenia Ca April, RN, am scribing for, and in the presence of, Romel Mi MD 18 :41. Assessment and Plan (1) Atrial fibrillation with rapid ventricular response Status: Chronic Assessment and plan: 81-year-old female, with severe cardiomyopathy, CHF, A. fib/RVR, elevated LFTs. Heart rate still elevated, likely compensatory for low stroke volume. -Cont digoxon. Hr trend improved -Continue beta-david and p.o. CCB as tolerated. -Continue coumadin, INR therapeutic today (2) Congestive heart failure Status: Chronic (3) Elevated liver enzymes Status: Acute (4) Elevated troponin Status: Resolved (5) Hypomagnesemia Status: Acute (6) Chronic anticoagulation Status: Chronic (7) Dyslipidemia Status: Chronic (8) Renal insufficiency Status: Chronic Cardiology - PN: Subj Interval history: [employer] Correspondent: Dr. Kemp Ms. Roth was seen housed on the telemetry unit in no acute distress. Digoxin was added Thursday, she remains in atrial fibrillation. Her heart rate is better today, it is in the 90s. She denies chest pain, shortness of breath, or dizziness. INR today is therapeutic at 2.2. Her magnesium has continued to be low throughout the hospital stay, we will add Mag-Ox 40 mg p.o. twice daily. Her blood pressures have been higher than previously, 174/81 and 140/73. We will increase Cardizem to 240 mg daily. She is okay to be discharged from cardiac standpoint. We will have case management evaluate for possible home health after discharge. She reports she has an appointment with Dr. Kemp on July 29, she will need to keep this appointment. Exam (Progress Note) - Constitutional Vitals: Period Temp Pulse Resp BP Sys/Cook Pulse Ox Last 24 Hr 97.2 F-98.5 F 67-112 16-18 134-174/68-97 82-96 Exam: General:no acute distress. alert and oriented, mood and affect are normal HEENT: no new lesions, sclerae are clear, mouth and pharynx benign. Hard of hearing Neck: supple, trachea midline, no JVD noted Lungs: Clear to auscultation throughout. pt comfortable without accesory muscle use to assist with breathing. CV: Irregularly irregular rate and rhythm, tachycardia Abd: soft and slightly tender, Normal bowl sounds, no masses. Ext: no cyanosis, clubbing or edema Neuro: grossly intact without focal neurologic deficit. Result/EKG - Labs CBC & BMP: 07/16/16 04:12 07/16/16 04:12 Lab Results: I have reviewed the past 24 hour labs Labs: Laboratory Results - last 24 hr 07/16/16 07/16/16 07/16/16 04:12 04:12 04:12 WBC 8.7 RBC 4.45 Hgb 12.3 Hct 37.4 MCV 84.0 L MCH 28 MCHC 32.9 RDW 15.1 Plt Count 278 MPV 9.7 Neut % (Auto) 56.0 Lymph % (Auto) 30.0 Cassia % (Auto) 8.6 Eos % (Auto) 4.9 Baso % (Auto) 0.2 Neut # (Auto) 4.9 Lymph # (Auto) 2.6 Cassia # (Auto) 0.8 Eos # (Auto) 0.4 Baso # (Auto) 0.0 Immature Gran % 0.3 Nucleated RBC % 0.0 Immature Gran # 0.03 Nucleated RBCs # 0.00 INR 2.2 PT Patient/Control Mix 25.0 D Sodium 145 Potassium 3.6 Chloride 101 Carbon Dioxide 33 H Anion Gap 14.6 BUN 12 Creatinine 1.20 H GFR Calculation 42 BUN/Creatinine Ratio 10.00 Glucose 81 Calculated Osmolality 286.7 Calcium 8.6 Magnesium 1.6 L - EKG EKG results: interpreted by me EKG shows: atrial fibrillation Quality Measures - Stroke Symptom Onset Unknown: No Specialty Discharge - Follow Up or Referrals Follow up with: Dariel Otero MD [Primary Care Provider] - 09/01/16 2:00 pm Kd Kemp MD [Physician] - 08/08/16 9:40 am (GET PT CHECKED AT [facility] OFFICE ) I, Romel Mi MD, personally performed the services described in this documentation, ascribed by Katelyn Ba RN in my presence, and it is both accurate and complete [id number] .
[2016-07-17] MEDS ORDERED: DILTIAZEM CD 240 MG CAPSULE PO SCH (09:00)
[2016-07-17] MEDS ORDERED: DIGOXIN 0.125 MG TABLET PO SCH (13:00)
--- NOTE | 2016-07-17 13:26 | Physician Query Form ---
CLICK EDIT DOCUMENT TO SELECT QUERY ANSWER --> OK --> SIGN Cesia Sharma RN Clinical Residence Counselor W) [phone] (f) [phone] [email or web address] PROVIDERS: Make your selection(s) from the choices in EACH section by typing an "x" and enter comments in the comment section. Please use your independent medical judgment in providing your response. This request does not imply that any particular answer is desired or expected. CLINICAL INDICATORS: (Providers should not edit this section) Based on documentation of "CHF", [id number], Echo showed EF of 15%. Pt. treated with IV Lasix. Please provide further specificity regarding CHF. ACUITY: ( ) Acute ( ) Chronic (x) Acute on Chronic ( ) Clinicallly unable to determine TYPE: ( ) Systolic (HFrEF - heart failure with reduced systolic function/EF) ( ) Diastolic (HFpEF - heart failure with preserved systolic function/EF) (x) Combined Systolic/Diastolic ( ) Other, please specify: ( ) Clinically unable to determine ( ) The patient does NOT have CHF COMMENTS: PLEASE ALSO DOCUMENT RESPONSE IN PROGRESS NOTES AND/OR DISCHARGE SUMMARY Use of terms such as suspected, likely, or probable (associated with a specific diagnosis that is being evaluated, monitored, or treated as if it exists) are acceptable and can be restated in the discharge summary if not ruled out. MTDD
== END 2016-07-16 18:20 | disposition home or self-care (01) | DRG 308 ==
LOC: N.ED 10:21 → N.EDINP 10:21 → OBSVTOIN 12:07 → INTOOBSV 12:07 → N.TELEN 12:37
PROVIDERS: ADMIT Family Medicine; ATTEND Family Medicine

== ENCOUNTER 2017-07-14 05:33 | Inpatient (IN) ==
[2017-07-07 11:04] LABS: Basophils # 0.1 10*3/uL (0.0-0.2); Basophils % 0.6 % (0.0-0.8); Eosinophils # 0.1 10*3/uL (0.0-0.87); Eosinophils % 1.1 % (0.00-10.9); Hematocrit 38.4 VOL% (35.7-47.0); Hemoglobin 12.7 GM/DL (12.0-16.0); Immature Granulocytes % 0.6 %; Immature Granulocytes Absolute 0.05 #; Lymphocytes # 2.6 10*3/uL (1.4-4.0); Lymphocytes % 31.4 % (21.3-54.2); Mean Corpuscular HGB Conc 33.1 GM/DL (32-36); Mean Corpuscular Hemoglobin 30 PG (27-34); Mean Corpuscular Volume 89.1 FL (87-102); Monocytes # 0.7 10*3/uL (0.11-0.8); Monocytes % 7.8 % (1.7-12.7); Neutrophils # 4.9 10*3/uL (1.4-7.4); Neutrophils % 58.5 % (38.7-73.9); Platelet Count 277 T/CUMM (130-400); Red Blood Count 4.31 MC/CUMM (3.8-5.5); White Blood Count 8.4 T/CUMM (4-12)
[2017-07-07 11:14] LABS: INR 2.2; Partial Thromboplastin Time 35.1 SECS (0-40)
[2017-07-07 11:19] LABS: PT Patient Result 22.3 SECS
[2017-07-07 11:37] LABS: Albumin 3.5 G/DL (3.4-5.0); Bilirubin,Total 0.5 MG/DL (0.2-1.0); Total Protein 6.7 G/DL (6.4-8.3)
[2017-07-07 12:39] LABS: Apearance,Urine Clear (Clear); Bilirubin,Urine Negative (Negative); Blood, Urine Negative (Negative); Glucose,Urine (UA) Negative (Negative); Ketones,Urine Negative (Negative); Nitrite,Urine Negative (Negative); Protein,Urine Negative; Urine Color Yellow (Yellow); Urine Urobilinogen < 2.0 EU/DL (0.2-1.0)
[2017-07-07 13:04] LABS: Mucus,Urine Rare /LPF (Occasional); Squamous Epithelial Cell,Urine Rare /HPF (0-10)
[2017-07-14] MEDS ORDERED: VANCOMYCIN INJ 1,000 MG in SODIUM CHLORIDE 0.9% 250 ML IV ONE (06:00)
[2017-07-14] MEDS ORDERED: CLINDAMYCIN INJ 900 MG in PREMIX 1 EACH IV ONE (06:00)
[2017-07-14] MEDS ORDERED: BACITRACIN OINT 0.9 GM PACK TOP ONE (06:36)
[2017-07-14 06:43] LABS: Partial Thromboplastin Time 36.8 SECS (0-40)
[2017-07-14] MEDS ORDERED: VANCOMYCIN 1,000 MG VIAL ONE (06:43)
[2017-07-14] MEDS ORDERED: CLINDAMYCIN INJ 50 ML IV ONE (06:43)
[2017-07-14 06:48] LABS: INR 2.2; PT Patient Result 22.1 SECS
[2017-07-14] MEDS ORDERED: LACTATED RINGERS 1,000 ML IV SCH (07:00)
[2017-07-14] MEDS ORDERED: TRANEXAMIC ACID 1,000 MG/10 ML VIAL ONE (07:31)
[2017-07-14] MEDS ORDERED: SODIUM CHLORIDE 0.9% 1,000 ML IV PRN (07:42)
[2017-07-14] MEDS ORDERED: NITROGLYCERIN SL 0.4 MG TABLET SL PRN (08:38)
[2017-07-14] MEDS ORDERED: MAGNESIUM HYDROXIDE SUSP 30 ML UDCUP PO PRN (08:45)
[2017-07-14] MEDS ORDERED: ONDANSETRON 4 MG/2 ML VIAL IV PRN (08:45)
[2017-07-14] MEDS ORDERED: MORPHINE 4 MG/1 ML VIAL IV PRN ×2 (08:45)
[2017-07-14] MEDS ORDERED: oxyCODONE IR 5 MG TABLET PO PRN ×2 (08:45)
[2017-07-14] MEDS ORDERED: ZALEPLON 5 MG CAPSULE PO PRN (08:45)
[2017-07-14 08:54] LABS: Apearance,Urine CLEAR (Clear); Bacteria,Urine Occasional /HPF (Few); Bilirubin,Urine Negative (Negative); Blood, Urine Negative (Negative); Glucose,Urine (UA) Negative (Negative); Ketones,Urine Negative (Negative); Mucus,Urine Occasional /LPF (Occasional); Nitrite,Urine Negative (Negative); Protein,Urine Negative; RBC,Urine 1 /HPF (0-4); Urine Color Yellow (Yellow); Urine Specific Gravity 1.009 (1.001-1.035); Urine Urobilinogen < 2.0 EU/DL (0.2-1.0); WBC,Urine <1 /HPF (0-6)
[2017-07-14] MEDS ORDERED: SEVOFLURANE 1 UNIT/15 MINUTE INH ONE (09:27)
[2017-07-14] MEDS ORDERED: PROPOFOL 200 MG/20 ML VIAL IV ONE (09:27)
[2017-07-14] MEDS ORDERED: GLYCOPYRROLATE 0.4 MG/2 ML VIAL ONE (09:27)
[2017-07-14] MEDS ORDERED: fentaNYL 100 MCG/2 ML VIAL ONE (09:27)
[2017-07-14] MEDS ORDERED: NEOSTIGMINE 10 MG/10 ML VIAL ONE (09:28)
[2017-07-14] MEDS ORDERED: SODIUM CHLORIDE 0.9% 1,000 ML IV ONE (09:28)
[2017-07-14] MEDS ORDERED: ROCURONIUM 100 MG/10 ML VIAL IV ONE (09:28)
[2017-07-14] MEDS ORDERED: ACETAMINOPHEN 1,000 MG/100 ML VIAL IV ONE (09:28)
[2017-07-14] MEDS: DOCUSATE SODIUM 100 MG CAPSULE PO SCH ×2 (10:20→20:34)
[2017-07-14] MEDS: PANTOPRAZOLE 40 MG TABLET PO SCH (10:20)
[2017-07-14] MEDS: MULTIVITAMIN (CENTRUM) TABLET PO SCH (10:20)
[2017-07-14] MEDS: MAGNESIUM OXIDE 400 MG TABLET PO SCH ×2 (10:20→20:37)
[2017-07-14] MEDS: LACTATED RINGERS 1,000 ML IV SCH ×4 (10:20→19:12)
[2017-07-14] MEDS: KETOROLAC 15 MG/1 ML VIAL IV SCH ×3 (10:55→20:38)
[2017-07-14] MEDS: DIGOXIN 0.125 MG TABLET PO SCH (12:50)
[2017-07-14] MEDS: CLINDAMYCIN INJ 900 MG in PREMIX 1 EACH IV SCH ×2 (13:30→20:38)
[2017-07-14] MEDS: ACETAMINOPHEN 500 MG TABLET PO SCH ×2 (13:30→19:00)
[2017-07-14] MEDS ORDERED: WARFARIN 2.5 MG TABLET PO SCH (18:00)
[2017-07-15] MEDS: ACETAMINOPHEN 500 MG TABLET PO SCH ×2 (00:22→06:09)
[2017-07-15] MEDS: LACTATED RINGERS 1,000 ML IV SCH (03:26)
[2017-07-15] MEDS: KETOROLAC 15 MG/1 ML VIAL IV SCH (03:42)
[2017-07-15 04:39] LABS: Basophils % 0.4 % (0.0-0.8); Eosinophils # 0.1 10*3/uL (0.0-0.87); Eosinophils % 1.7 % (0.00-10.9); Hematocrit 28.8 VOL% (35.7-47.0); Hemoglobin 9.7 GM/DL (12.0-16.0); Immature Granulocytes % 0.6 %; Immature Granulocytes Absolute 0.05 #; Lymphocytes # 1.7 10*3/uL (1.4-4.0); Lymphocytes % 20.5 % (21.3-54.2); Mean Corpuscular HGB Conc 33.7 GM/DL (32-36); Mean Corpuscular Hemoglobin 29 PG (27-34); Mean Corpuscular Volume 87.3 FL (87-102); Mean Platelet Volume 9.5 FL (9.6-12.0); Monocytes # 0.8 10*3/uL (0.11-0.8); Monocytes % 9.1 % (1.7-12.7); Neutrophils # 5.8 10*3/uL (1.4-7.4); Neutrophils % 67.7 % (38.7-73.9); Platelet Count 189 T/CUMM (130-400); Red Cell Distribution Width 13.2 % (9.3-17.3); White Blood Count 8.5 T/CUMM (4-12)
[2017-07-15 05:11] LABS: Calcium 7.7 MG/DL (8.5-10.1); Osmolality,Calculated 281.5 MOS/KG (273-304); Potassium 3.6 MMOL/L (3.5-5.1)
[2017-07-15] MEDS: PANTOPRAZOLE 40 MG TABLET PO SCH (09:07)
[2017-07-15] MEDS: DOCUSATE SODIUM 100 MG CAPSULE PO SCH ×2 (09:07→20:27)
[2017-07-15] MEDS: ATORVASTATIN 20 MG TABLET PO SCH (09:07)
[2017-07-15] MEDS: DILTIAZEM CD 120 MG CAPSULE PO SCH (09:07)
[2017-07-15] MEDS: MAGNESIUM OXIDE 400 MG TABLET PO SCH ×2 (09:07→20:27)
[2017-07-15] MEDS: MULTIVITAMIN (CENTRUM) TABLET PO SCH (09:07)
[2017-07-15] MEDS: ISOSORBIDE MONONITRATE 30 MG TABLET PO SCH (09:07)
[2017-07-15] MEDS: BISOPROLOL 5 MG TABLET PO SCH (09:07)
[2017-07-15] MEDS: LOSARTAN 25 MG TABLET PO SCH (09:11)
[2017-07-15] MEDS: DIGOXIN 0.125 MG TABLET PO SCH (13:00)
[2017-07-15] MEDS ORDERED: WARFARIN 2.5 MG TABLET PO SCH (18:00)
[2017-07-15] MEDS ORDERED: ASPIRIN EC 81 MG TABLET PO SCH (19:00)
[2017-07-16 04:41] LABS: Basophils % 0.2 % (0.0-0.8); Eosinophils # 0.2 10*3/uL (0.0-0.87); Eosinophils % 1.4 % (0.00-10.9); Hematocrit 28.5 VOL% (35.7-47.0); Hemoglobin 9.6 GM/DL (12.0-16.0); Immature Granulocytes % 0.6 %; Immature Granulocytes Absolute 0.07 #; Lymphocytes # 2.1 10*3/uL (1.4-4.0); Lymphocytes % 19.1 % (21.3-54.2); Mean Corpuscular HGB Conc 33.7 GM/DL (32-36); Mean Corpuscular Hemoglobin 30 PG (27-34); Mean Platelet Volume 9.4 FL (9.6-12.0); Monocytes # 0.9 10*3/uL (0.11-0.8); Monocytes % 8.6 % (1.7-12.7); Neutrophils # 7.6 10*3/uL (1.4-7.4); Neutrophils % 70.1 % (38.7-73.9); Platelet Count 192 T/CUMM (130-400); Red Blood Count 3.24 MC/CUMM (3.8-5.5); Red Cell Distribution Width 13.2 % (9.3-17.3); White Blood Count 10.9 T/CUMM (4-12)
[2017-07-16 04:49] LABS: INR 3.1
[2017-07-16 04:53] LABS: PT Patient Result 31.1 SECS
[2017-07-16] MEDS: DILTIAZEM CD 120 MG CAPSULE PO SCH (09:12)
[2017-07-16] MEDS: BISOPROLOL 5 MG TABLET PO SCH (09:13)
[2017-07-16] MEDS: DOCUSATE SODIUM 100 MG CAPSULE PO SCH (09:13)
[2017-07-16] MEDS: PANTOPRAZOLE 40 MG TABLET PO SCH (09:13)
[2017-07-16] MEDS: MAGNESIUM OXIDE 400 MG TABLET PO SCH (09:13)
[2017-07-16] MEDS: LOSARTAN 25 MG TABLET PO SCH (09:13)
[2017-07-16] MEDS: ISOSORBIDE MONONITRATE 30 MG TABLET PO SCH (09:13)
[2017-07-16] MEDS: MULTIVITAMIN (CENTRUM) TABLET PO SCH (09:13)
[2017-07-16] MEDS: ATORVASTATIN 20 MG TABLET PO SCH (09:13)
[2017-07-16] MEDS: DIGOXIN 0.125 MG TABLET PO SCH (13:14)
[2017-07-16 17:18] VITALS: BP 140/82
== END 2017-07-16 13:25 | DRG 470 ==
LOC: N.OR 05:33 → N.SDSINP 05:36 → N.3E 08:14
PROVIDERS: ADMIT Orthopaedic Surgery; ATTEND Orthopaedic Surgery

== ENCOUNTER 2019-06-02 10:09 | Inpatient (IN) ==
[2019-06-02] MEDS ORDERED: PANTOPRAZOLE 40 MG VIAL IV STA (10:34)
[2019-06-02] MEDS ORDERED: SODIUM CHLORIDE 0.9% 500 ML IV STA (10:35)
[2019-06-02 10:56] LABS: Basophils % 0.2 % (0.0-0.8); Eosinophils # 0.2 10*3/uL (0.0-0.87); Hemoglobin 15.5 GM/DL (12.0-16.0); Immature Granulocytes % 0.7 %; Immature Granulocytes Absolute 0.11 #; Lymphocytes # 5.2 10*3/uL (1.4-4.0); Lymphocytes % 35.2 % (21.3-54.2); Mean Corpuscular HGB Conc 32.3 GM/DL (32-36); Mean Corpuscular Volume 92.7 FL (87-102); Mean Platelet Volume 9.8 FL (9.6-12.0); Monocytes % 6.3 % (1.7-12.7); Neutrophils % 56.6 % (38.7-73.9); Platelet Count 258 T/CUMM (130-400); Red Blood Count 5.18 MC/CUMM (3.8-5.5); Red Cell Distribution Width 13.4 % (9.3-17.3); White Blood Count 14.9 T/CUMM (4-12)
[2019-06-02 11:04] LABS: Albumin 3.1 G/DL (3.4-5.0); Bilirubin,Total 1.1 MG/DL (0.2-1.0); Calcium 8.7 MG/DL (8.5-10.1); Osmolality,Calculated 292.1 MOS/KG (273-304); Total Protein 6.8 G/DL (6.4-8.3)
[2019-06-02 12:40] LABS: INR 3.7
[2019-06-02 12:42] LABS: PT Patient Result 36.8 SECS (9.8-11.9)
[2019-06-02] MEDS ORDERED: ACETAMINOPHEN 325 MG TABLET PO PRN (13:03)
[2019-06-02] MEDS ORDERED: ONDANSETRON 4 MG/2 ML VIAL IV PRN (13:03)
[2019-06-02] MEDS ORDERED: NITROGLYCERIN SL 0.4 MG TABLET SL PRN (13:07)
[2019-06-02] MEDS ORDERED: PROTHROMBIN COMPLEX CONC 1,500 UNIT in IV BAG 1 EACH IV ONE (13:14)
[2019-06-02] MEDS ORDERED: SODIUM CHLORIDE 0.9% 1,000 ML IV PRN (13:14)
[2019-06-02 14:12] LABS: Hematocrit 40.6 VOL% (35.7-47.0); Hemoglobin 13.2 GM/DL (12.0-16.0)
[2019-06-02] MEDS ORDERED: tiZANidine 4 MG TABLET PO PRN (14:16)
[2019-06-02] MEDS ORDERED: PHYTONADIONE 10 MG/1 ML AMP SUBCUT ONE (16:56)
[2019-06-02] MEDS: SODIUM CHLORIDE 0.9% 1,000 ML IV SCH ×2 (17:00→23:19)
[2019-06-02] MEDS: DILTIAZEM 30 MG TABLET PO SCH (21:17)
[2019-06-02] MEDS: MAGNESIUM OXIDE 400 MG TABLET PO SCH (21:19)
[2019-06-02] MEDS: predniSONE 20 MG TABLET PO SCH (21:19)
[2019-06-02] MEDS: DOCUSATE SODIUM 100 MG CAPSULE PO SCH (21:19)
[2019-06-02] MEDS: DONEPEZIL 5 MG TABLET PO SCH (21:20)
[2019-06-02] MEDS: PANTOPRAZOLE 40 MG VIAL IV SCH (21:30)
[2019-06-02] MEDS ORDERED: DILTIAZEM 25 MG/5 ML VIAL IV ONE ×2 (21:56→22:02)
[2019-06-02 23:42] LABS: Hematocrit 25.3 VOL% (35.7-47.0)
[2019-06-03 00:08] LABS: INR 1.8; PT Patient Result 18.7 SECS (9.8-11.9)
[2019-06-03 01:27] LABS: Hematocrit 25.4 VOL% (35.7-47.0); Hemoglobin 8.2 GM/DL (12.0-16.0)
[2019-06-03] MEDS ORDERED: DILTIAZEM 25 MG/5 ML VIAL IV ONE (03:20)
[2019-06-03] MEDS ORDERED: SODIUM CHLORIDE 0.9% 1,000 ML IV PRN (03:51)
[2019-06-03 05:12] LABS: Basophils % 0.1 % (0.0-0.8); Eosinophils % 0.1 % (0.00-10.9); Hematocrit 26.6 VOL% (35.7-47.0); Hemoglobin 8.5 GM/DL (12.0-16.0); Immature Granulocytes Absolute 0.21 #; Lymphocytes # 3.3 10*3/uL (1.4-4.0); Lymphocytes % 15.4 % (21.3-54.2); Mean Corpuscular Volume 92.7 FL (87-102); Mean Platelet Volume 9.5 FL (9.6-12.0); Monocytes % 3.9 % (1.7-12.7); Neutrophils % 79.5 % (38.7-73.9); Platelet Count 258 T/CUMM (130-400); Red Blood Count 2.87 MC/CUMM (3.8-5.5); Red Cell Distribution Width 13.6 % (9.3-17.3); White Blood Count 21.2 T/CUMM (4-12)
[2019-06-03 05:39] LABS: Band Neutrophils 1 % (0-10); Lymphocytes 17 % (20-55); Microcytosis Slight; Segmented Neutrophils 79 % (50-85); Total Cells Counted 100
[2019-06-03 05:40] LABS: Hypochromasia 1+; Ovalocytes Slight
[2019-06-03 05:51] LABS: INR 1.6; PT Patient Result 17.2 SECS (9.8-11.9)
[2019-06-03] MEDS: SODIUM CHLORIDE 0.9% 1,000 ML IV SCH ×2 (08:01→16:26)
[2019-06-03] MEDS ORDERED: POTASSIUM CHLORIDE RIDER 10 MEQ in PREMIX 1 EACH IV PRN (08:01)
[2019-06-03 08:35] LABS: Hematocrit 30.8 VOL% (35.7-47.0); Hemoglobin 9.7 GM/DL (12.0-16.0)
[2019-06-03] MEDS ORDERED: ISOSORBIDE MONONITRATE 30 MG TABLET PO SCH (09:00)
[2019-06-03] MEDS ORDERED: LIDOCAINE 2% 5 ML VIAL ONE ×2 (09:00→13:28)
[2019-06-03] MEDS ORDERED: NON-FORMULARY MEDICATION (Omeprazole 20 MG) PO SCH (09:00)
[2019-06-03] MEDS ORDERED: ETOMIDATE 20 MG/10 ML VIAL IV ONE (09:00)
[2019-06-03] MEDS ORDERED: propofoL 200 MG/20 ML VIAL IV ONE ×2 (09:00→13:28)
[2019-06-03] MEDS: DILTIAZEM 30 MG TABLET PO SCH ×2 (09:14→21:14)
[2019-06-03] MEDS: PANTOPRAZOLE 40 MG VIAL IV SCH ×2 (09:15→21:19)
[2019-06-03] MEDS: predniSONE 20 MG TABLET PO SCH ×2 (09:15→21:17)
[2019-06-03] MEDS: MULTIVITAMIN (CENTRUM) TABLET PO SCH (09:15)
[2019-06-03] MEDS: MAGNESIUM OXIDE 400 MG TABLET PO SCH ×2 (09:15→21:17)
[2019-06-03] MEDS: DOCUSATE SODIUM 100 MG CAPSULE PO SCH ×2 (09:22→21:38)
[2019-06-03] MEDS: ATORVASTATIN 20 MG TABLET PO SCH (09:22)
[2019-06-03] MEDS: DIGOXIN 0.125 MG TABLET PO SCH (12:26)
[2019-06-03] MEDS ORDERED: ETOMIDATE 40 MG/20 ML VIAL IV ONE (13:28)
[2019-06-03] MEDS: BISOPROLOL 5 MG TABLET PO SCH (13:47)
[2019-06-03] MEDS: DONEPEZIL 5 MG TABLET PO SCH (21:14)
[2019-06-04] MEDS: SODIUM CHLORIDE 0.9% 1,000 ML IV SCH ×4 (00:20→21:47)
[2019-06-04] MEDS: MAGNESIUM OXIDE 400 MG TABLET PO SCH ×2 (08:00→21:16)
[2019-06-04] MEDS: BISOPROLOL 5 MG TABLET PO SCH (08:00)
[2019-06-04] MEDS: DILTIAZEM 30 MG TABLET PO SCH ×2 (08:00→21:16)
[2019-06-04] MEDS: DOCUSATE SODIUM 100 MG CAPSULE PO SCH ×2 (08:00→21:16)
[2019-06-04] MEDS: MULTIVITAMIN (CENTRUM) TABLET PO SCH (08:00)
[2019-06-04] MEDS: predniSONE 20 MG TABLET PO SCH ×2 (08:00→21:17)
[2019-06-04] MEDS: PANTOPRAZOLE 40 MG VIAL IV SCH ×2 (08:09→21:17)
[2019-06-04 11:10] LABS: Basophils % 0.1 % (0.0-0.8); Eosinophils % 0.2 % (0.00-10.9); Hematocrit 26.5 VOL% (35.7-47.0); Hemoglobin 8.4 GM/DL (12.0-16.0); Immature Granulocytes % 0.9 %; Immature Granulocytes Absolute 0.12 #; Lymphocytes # 1.9 10*3/uL (1.4-4.0); Lymphocytes % 13.5 % (21.3-54.2); Mean Corpuscular HGB Conc 31.7 GM/DL (32-36); Mean Platelet Volume 9.2 FL (9.6-12.0); Monocytes % 4.1 % (1.7-12.7); Neutrophils % 81.2 % (38.7-73.9); Platelet Count 200 T/CUMM (130-400); Red Blood Count 2.85 MC/CUMM (3.8-5.5); Red Cell Distribution Width 15.9 % (9.3-17.3); White Blood Count 13.8 T/CUMM (4-12)
[2019-06-04 11:24] LABS: INR 1.4; PT Patient Result 14.9 SECS (9.8-11.9)
[2019-06-04 11:29] LABS: Calcium 8.3 MG/DL (8.5-10.1)
[2019-06-04] MEDS: DIGOXIN 0.125 MG TABLET PO SCH (16:43)
[2019-06-04] MEDS: DONEPEZIL 5 MG TABLET PO SCH (21:15)
[2019-06-05 05:04] LABS: Basophils % 0.1 % (0.0-0.8); Eosinophils % 0.3 % (0.00-10.9); Hematocrit 24.9 VOL% (35.7-47.0); Immature Granulocytes % 0.9 %; Immature Granulocytes Absolute 0.09 #; Lymphocytes # 2.4 10*3/uL (1.4-4.0); Mean Corpuscular HGB Conc 32.1 GM/DL (32-36); Mean Corpuscular Volume 90.2 FL (87-102); Mean Platelet Volume 9.4 FL (9.6-12.0); Monocytes % 5.5 % (1.7-12.7); Neutrophils % 70.2 % (38.7-73.9); Platelet Count 191 T/CUMM (130-400); Red Blood Count 2.76 MC/CUMM (3.8-5.5); Red Cell Distribution Width 15.6 % (9.3-17.3); White Blood Count 10.4 T/CUMM (4-12)
[2019-06-05 05:33] LABS: Calcium 8.1 MG/DL (8.5-10.1); Osmolality,Calculated 297.8 MOS/KG (273-304)
[2019-06-05 05:55] LABS: INR 1.3; PT Patient Result 13.6 SECS (9.8-11.9)
[2019-06-05] MEDS: PANTOPRAZOLE 40 MG VIAL IV SCH ×2 (10:00→21:19)
[2019-06-05] MEDS: MULTIVITAMIN (CENTRUM) TABLET PO SCH (10:07)
[2019-06-05] MEDS: DOCUSATE SODIUM 100 MG CAPSULE PO SCH ×2 (10:07→21:20)
[2019-06-05] MEDS: DILTIAZEM 30 MG TABLET PO SCH ×2 (10:07→21:20)
[2019-06-05] MEDS: MAGNESIUM OXIDE 400 MG TABLET PO SCH ×2 (10:07→21:19)
[2019-06-05] MEDS: BISOPROLOL 5 MG TABLET PO SCH (10:07)
[2019-06-05] MEDS: predniSONE 20 MG TABLET PO SCH ×2 (10:08→21:19)
[2019-06-05] MEDS: DIGOXIN 0.125 MG TABLET PO SCH (14:08)
[2019-06-05] MEDS ORDERED: PNEUMOCOCCAL VACCINE (13 VALENT) 0.5 ML SYRINGE IM ONE (15:08)
[2019-06-05] MEDS: DONEPEZIL 5 MG TABLET PO SCH (21:20)
[2019-06-06 06:19] LABS: Basophils % 0.1 % (0.0-0.8); Hematocrit 28.2 VOL% (35.7-47.0); Hemoglobin 8.9 GM/DL (12.0-16.0); Immature Granulocytes % 0.7 %; Immature Granulocytes Absolute 0.08 #; Lymphocytes # 2.5 10*3/uL (1.4-4.0); Lymphocytes % 23.5 % (21.3-54.2); Mean Corpuscular HGB Conc 31.6 GM/DL (32-36); Mean Corpuscular Volume 92.2 FL (87-102); Mean Platelet Volume 9.5 FL (9.6-12.0); Monocytes % 6.1 % (1.7-12.7); Neutrophils % 69.6 % (38.7-73.9); Platelet Count 232 T/CUMM (130-400); Red Blood Count 3.06 MC/CUMM (3.8-5.5); Red Cell Distribution Width 15.3 % (9.3-17.3); White Blood Count 10.8 T/CUMM (4-12)
[2019-06-06 06:32] LABS: INR 1.1
[2019-06-06 06:50] LABS: Calcium 8.8 MG/DL (8.5-10.1); Osmolality,Calculated 289.1 MOS/KG (273-304)
[2019-06-06] MEDS: DILTIAZEM 30 MG TABLET PO SCH (08:57)
[2019-06-06] MEDS: DOCUSATE SODIUM 100 MG CAPSULE PO SCH (08:57)
[2019-06-06] MEDS: ATORVASTATIN 20 MG TABLET PO SCH (08:57)
[2019-06-06] MEDS: predniSONE 20 MG TABLET PO SCH (08:57)
[2019-06-06] MEDS: MAGNESIUM OXIDE 400 MG TABLET PO SCH (08:58)
[2019-06-06] MEDS: MULTIVITAMIN (CENTRUM) TABLET PO SCH (08:58)
[2019-06-06] MEDS: BISOPROLOL 5 MG TABLET PO SCH (08:58)
[2019-06-06] MEDS: PANTOPRAZOLE 40 MG VIAL IV SCH (09:00)
[2019-06-06] MEDS ORDERED: DILTIAZEM 30 MG TABLET PO SCH (10:34)
[2019-06-06] MEDS ORDERED: DILTIAZEM 30 MG TABLET PO ONE ×2 (10:34→13:00)
[2019-06-06 12:26] VITALS: BP 155/67
[2019-06-06] MEDS: DIGOXIN 0.125 MG TABLET PO SCH (14:01)
[2019-06-06] MEDS ORDERED: DILTIAZEM 60 MG TABLET PO SCH (21:00)
== END 2019-06-06 15:11 | disposition home or self-care (01) | DRG 378 ==
LOC: EDUNIT# → EDBD → N.ED 10:09 → N.EDINP 13:03 → N.ICU 13:34 → N.TELEN 06-04 12:39
PROVIDERS: ADMIT Family Medicine; ATTEND Family Medicine